=== PATIENT | male | born 1955 | race Caucasian/White ===

== ENCOUNTER 2020-10-18 07:32 | Day surgery (SDC) | payer OTHER ==
--- NOTE | 2020-10-16 13:38 | RAD REPORT ---
EXAM DESCRIPTION: RAD - Chest Pa And Lat (2 Views) - 10/16/2020 1:31 pm CLINICAL HISTORY: PREOP Chest pain. COMPARISON: Ct Stroke Brain Wo Cont dated 10/16/2020; HEAD BRAIN W O CONTRAST dated 11/24/2012Chest Si ngle View dated 10/01/2017 FINDINGS: The lungs are clear. The heart is normal in size. No displaced fractures. IMPRESSION: No acute or concerning finding suspected.
[2020-10-16 14:06] LABS: Absolute Lymphocytes (CBC) 1.4 K/uL (0.7-4.9); Basophils % 0.6 % (0-1.3); Hematocrit 46.4 % (39.6-49.0); Lymphocytes % 24.4 % (15.3-44.8); MPV 9.5 fL (7.6-11.3); RBC Red Blood Cell Count 4.73 M/uL (4.33-5.43)
[2020-10-16 15:18] LABS: Potassium 3.8 mmol/L (3.5-5.1)
[2020-10-18] MEDS ORDERED: Ringers Lactate 1,000 ML IV ONE (08:29)
[2020-10-18] MEDS ORDERED: CEFOXITIN/SWI 1gm 1 GM/10 ML SYR ONE (08:30)
[2020-10-18] MEDS ORDERED: LIDOCAINE 1% MPF 30 ML VIAL ONE (08:32)
[2020-10-18] MEDS ORDERED: FENTANYL CITR 100 MCG/2 ML ONE ×3 (10:23→11:03)
[2020-10-18] MEDS ORDERED: propofoL 200 MG/20 ML VIAL IV ONE (10:34)
[2020-10-18] MEDS ORDERED: LIDOCAINE 1% MPF 5 ML VIAL ONE (10:35)
[2020-10-18] MEDS ORDERED: ONDANSETRON 4 MG/2 ML VIAL ONE (10:50)
[2020-10-18] MEDS ORDERED: HYDROCODONE/APAP 7.5/325 MG TAB ONE (12:03)
--- NOTE | 2020-10-18 12:15 | OP ---
Date of Procedure: 10/18/2020 Surgeon: Wilfredo Cabello MD Hr Analyst: None. Preoperative Diagnosis: Thrombosed and bleeding hemorrhoids. Postoperative Diagnosis: Thrombosed and bleeding hemorrhoids. Procedures: Exam under anesthesia, rigid proctoscopy, and hemorrhoidectomy. Estimated Blood Loss: Minimal. Specimen: Right lateral thrombosed hemorrhoid with ulcer. Finding: As above. Anesthesia: General. Complications: None. Disposition: The patient tolerated the procedure in stable condition and taken to Recovery in good g eneral condition. Procedure In Detail: The patient was brought to the OR and placed in supine position. General anest hesia begun. The patient was placed in lithotomy position, prepped and draped in the usual sterile f ashion. Exam under anesthesia revealed a thrombosed ulcerated right lateral hemorrhoid and rigid pro ctoscopy revealed other smaller hemorrhoids below that. There was no thrombosis. They appeared to b e relatively asymptomatic. Subsequently, Harmonic Scalpel was used to excise the thrombosed hemorrho id with the ulceration and then there were sent to pathology for identification after being appropria tely labeled and bleeding was controlled with cautery. Blood clots were all removed and then Surgice l, Vaseline and foam were placed in the anal canal for bleeding control. Sterile dressing was applie d. Marcaine had already been injected. The patient was awakened and taken to Recovery in good gener al condition. Discharge Note: The patient will go to Day Surgery and home when stable. Disposition: Home. Condition: Stable. Discharge Instructions: Resume home medications and diet. Activity as tolerated. No heavy lifting. High-fiber diet. Metamucil 1 tablespoon p.o. t.i.d., Colace 100 mg p.o. b.i.d., Procto-HC 2.5% to anus b.i.d. and p.r.n. Sitz baths q.i.d. Tylenol No.3 one tablet p.o. q.4 p.r.n. pain. Follow up i n my office in 2 weeks. Call for appointment. /MODL Voice ID: [id number] Report ID: [id number]
[2020-10-18 12:50] VITALS: BP 129/65; TEMP 96.4; O2SAT 98
== END 2020-10-18 12:40 | disposition home or self-care (01) ==
LOC: OR 07:32
PROVIDERS: ATTEND Surgery
PROC: 0DJD8ZZ Inspection of Lower Intestinal Tract, Via Natural or Artificial Opening Endoscopic (ICD-10-PCS; 2020-10-18)
PROC: 06BY4ZC Excision of Hemorrhoidal Plexus, Percutaneous Endoscopic Approach (ICD-10-PCS; principal; 2020-10-18 09:15)
DX: K64.5 Perianal venous thrombosis (principal); G47.30 Sleep apnea, unspecified; Z20.822 Contact with and (suspected) exposure to COVID-19
CPT/HCPCS: 85025; 80048; 36415; 88304; 71046; 46320; 45300; U0003; J2704; J3010 ×3; J7120; J2405

== ENCOUNTER 2021-11-23 05:14 | Emergency (ER) | payer OTHER ==
[2021-11-23 05:43] LABS: Absolute Lymphocytes (CBC) 1.6 K/uL (0.7-4.9)
[2021-11-23 05:48] LABS: Hematocrit 47.1 % (39.6-49.0); Lymphocytes % 21.8 % (15.3-44.8); MPV 8.4 fL (7.6-11.3)
[2021-11-23] MEDS ORDERED: MORPHINE 4 MG/ML SYR ONE (05:58)
[2021-11-23 05:59] LABS: Albumin 4.1 g/dL (3.4-5.0); Bilirubin Total 1.8 mg/dL (0.2-1.0); Potassium 4.2 mmol/L (3.5-5.1); Protein, Total 7.9 g/dL (6.4-8.2)
[2021-11-23] MEDS ORDERED: ONDANSETRON 4 MG/2 ML VIAL ONE (05:59)
--- NOTE | 2021-11-23 07:57 | RAD REPORT ---
EXAM DESCRIPTION: CTAbdomen Pelvis W Contrast - 11/23/2021 7:28 am CLINICAL HISTORY: Abdominal pain. Abdominal pain, acute, nonlocalized COMPARISON: No comparisons TECHNIQUE: Biphasic CT imaging of the abdomen and pelvis was performed with 100 ml non-ionic IV cont rast. All CT scans are performed using dose optimization technique as appropriate and may include automated exposure control or mA/KV adjustment according to patient size. FINDINGS: Mild linear opacities in both posterior lung bases likely subsegmental atelectasis. Small hiatal hernia. The liver, spleen, pancreas, adrenal glands and kidneys are within normal limits. Cholecystectomy cli ps. No bowel obstruction, free air, free fluid or abscess. The appendix is normal. No evidence of signi ficant lymphadenopathy. Small bilateral fat containing inguinal hernias. Mild lumbar degenerative changes. IMPRESSION: No acute intra-abdominal or pelvic finding.
--- NOTE | 2021-11-23 08:16 | EDPHYS ---
Physician Documentation [facility] Name: Fredy Dickson Age: 66 yrs Sex: Male : 1955 Arrival Date: 11/23/2021 Time: 05:18 Bed 7 Private MD: ED Physician Jhonny Asencio HPI: 11/23 05:52 This 66 yrs old Male presents to ER via Ambulatory with complaints of Abdominal Pain. kdr 05:52 The patient presents with abdominal pain in the epigastric area, in the upper abdomen. kdr Onset: The symptoms/episode began/occurred gradually, last night, at 21:00. The symptoms do not radiate. Associated signs and symptoms: Pertinent positives: nausea, Pertinent negatives: anorexia, blood in stools, chest pain, constipation, diarrhea, dysuria, fever, headache, hematuria, palpitations, shortness of breath, testicular pain, vomiting, vomiting blood. The symptoms are described as achy, crampy, intermittent, sharp, vague. Modifying factors: The symptoms are alleviated by nothing, the symptoms are aggravated by coughing, movement, touching the area. Severity of pain: At its worst the pain was mild moderate just prior to arrival, in the emergency department the pain is unchanged. The patient has experienced similar episodes in the past, a few times. The patient has not recently seen a physician. Historical: - Allergies: 06:03 NSAIDS; kd3 - Home Meds: 06:03 aspirin 81 mg Oral TbEC 1 tab once daily [Active]; folic acid 1 mg Oral tab twice a day kd3 [Active]; omeprazole 40 mg Oral cpDR 1 cap once daily [Active]; Vascepa 1 gram Oral cap twice a day [Active]; - PMHx: 06:03 GERD; kd3 - Immunization history:: Adult Immunizations up to date. - Social history:: Smoking status: unknown. ROS: 05:52 Constitutional: Negative for fever, chills, and weight loss, Eyes: Negative for injury, kdr pain, redness, and discharge, Neck: Negative for injury, pain, and swelling, Cardiovascular: Negative for chest pain, palpitations, and edema, Respiratory: Negative for shortness of breath, cough, wheezing, and pleuritic chest pain, Back: Negative for injury and pain, : Negative for injury, bleeding, discharge, and swelling, MS/Extremity: Negative for injury and deformity, Skin: Negative for injury, rash, and discoloration, Neuro: Negative for headache, weakness, numbness, tingling, and seizure activity. Psych: Negative for depression, anxiety, suicide ideation, homicidal ideation, and hallucinations, Allergy/Immunology: Negative for hives, rash, and allergies, Endocrine: Negative for neck swelling, polydipsia, polyuria, polyphagia, and marked weight changes, Hematologic/Lymphatic: Negative for swollen nodes, abnormal bleeding, and unusual bruising. 05:52 Abdomen/GI: Positive for abdominal pain, nausea, Negative for Exam: 06:18 Constitutional: This is a well developed, well nourished patient who is awake, alert, kdr and in no acute distress. Head/Face: Normocephalic, atraumatic. Eyes: Pupils equal round and reactive to light, extra-ocular motions intact. Lids and lashes normal. Conjunctiva and sclera are non-icteric and not injected. Cornea within normal limits. Periorbital areas with no swelling, redness, or edema. Neck: Trachea midline, no thyromegaly or masses palpated, and no cervical lymphadenopathy. Supple, full range of motion without nuchal rigidity, or vertebral point tenderness. No Meningismus. Chest/axilla: Normal chest wall appearance and motion. Nontender with no deformity. No lesions are appreciated. Cardiovascular: Regular rate and rhythm with a normal S1 and S2. No gallops, murmurs, or rubs. Normal PMI, no JVD. No pulse deficits. Respiratory: Lungs have equal breath sounds bilaterally, clear to auscultation and percussion. No rales, rhonchi or wheezes noted. No increased work of breathing, no retractions or nasal flaring. Back: No spinal tenderness. No costovertebral tenderness. Full range of motion. Skin: Warm, dry with normal turgor. Normal color with no rashes, no lesions, and no evidence of cellulitis. MS/ Extremity: Pulses equal, no cyanosis. Neurovascular intact. Full, normal range of motion. Neuro: Awake and alert, GCS 15, oriented to person, place, time, and situation. Cranial nerves II-XII grossly intact. Motor strength 5/5 in all extremities. Sensory grossly intact. Cerebellar exam normal. Normal gait. Psych: Awake, alert, with orientation to person, place and time. Behavior, mood, and affect are within normal limits. 06:18 Abdomen/GI: Inspection: obese Bowel sounds: active, all quadrants, Palpation: soft, mild abdominal tenderness, in the epigastric area, right upper quadrant and left upper quadrant. Vital Signs: 05:26 BP 177 / 86; Pulse 77; Resp 18; Temp 97.2; Pulse Ox 100% ; Weight 107.5 kg; Height 5 tw5 ft. 11 in. (180.34 cm); Pain 4/10; 06:03 BP 156 / 85; Pulse 72; Resp 16; Pulse Ox 98% on R/A; kd3 07:01 BP 133 / 85; Pulse 74; Resp 16; Pulse Ox 99% on R/A; kd3 05:26 Body Mass Index 33.05 (107.50 kg, 180.34 cm) tw5 MDM: 06:18 Data reviewed: vital signs, nurses notes. Counseling: I had a detailed discussion with kdr the patient and/or guardian regarding: the historical points, exam findings, and any diagnostic results supporting the discharge/admit diagnosis, lab results, radiology results. 07:10 Patient medically screened. ma2 08:14 Differential diagnosis: bowel obstruction, gastritis, Irritable bowel syndrome, ma2 pancreatitis. Response to treatment: the patient's symptoms have resolved after treatment. 11/23 05:20 Order name: CBC with Diff; Complete Time: 07:10 [facility] 11/23 05:20 Order name: CMP; Complete Time: 07:10 [facility] 11/23 05:20 Order name: Lipase; Complete Time: 07:10 [facility] 11/23 07:03 Order name: CT Abd/Pelvis - IV Contrast Only; Complete Time: 08:09 [facility] 11/23 05:20 Order name: IV Saline Lock; Complete Time: 06:00 [facility] 11/23 05:20 Order name: Labs collected and sent; Complete Time: 06:00 [facility] Administered Medications: 06:00 Drug: morphine 4 mg Route: IVP; Site: right antecubital; kd3 07:00 Follow up: Response: No adverse reaction; Marked relief of symptoms; Pain is decreased; jg9 RASS: Alert and Calm (0) 06:01 Drug: Zofran (Ondansetron) 4 mg Route: IVP; Site: right antecubital; kd3 07:00 Follow up: Response: No adverse reaction; Nausea is decreased jg9 Disposition Summary: 11/23/21 08:15 Discharge Ordered Location: Home ma2 Condition: Stable ma2 Diagnosis - Abdominal pain, Generalized ma2 Followup: ma2 - With: Bob Stewart MD - When: Tomorrow - Reason: If symptoms return Discharge Instructions: - Discharge Summary Sheet ma2 - Abdominal Pain, Adult ma2 Forms: - Medication Reconciliation Form ma2 - Thank You Letter ma2 - Antibiotic Education ma2 - Prescription Opioid Use ma2 Prescriptions: - Zofran 4 mg Oral Tablet - take 1 tablet by ORAL route every 12 hours As needed; 20 tablet; Refills: 0, ma2 Product Selection Permitted - Diclofenac Sodium 75 mg Oral Tablet Sustained Release - take 1 tablet by ORAL route 2 times per day; 30 tablet; Refills: 0, Product ma2 Selection Permitted - Pepcid 20 mg Oral Tablet - take 1 tablet by ORAL route once daily for 10 days; 10 tablet; Refills: 0, ma2 Product Selection Permitted Signatures: Dispatcher [employer] Michael Hoover MD MD [facility] Jhonny Asencio MD MD ma2 Anni San RN RN kd3 Roberta Lenz RN jg9
--- NOTE | 2021-11-23 08:16 | ER ---
Nurse's Notes [facility] Name: Fredy Dickson Age: 66 yrs Sex: Male : 1955 Arrival Date: 11/23/2021 Time: 05:18 Bed 7 Private MD: Diagnosis: Abdominal pain, Generalized Presentation: 11/23 05:26 Chief complaint: Patient states: "I am having abdominal pain that started two days ago tw5 after dinner.". Coronavirus screen: Vaccine status: Patient reports receiving the 2nd dose of the covid vaccine. Moderna. Ebola Screen: Patient negative for fever greater than or equal to 101.5 degrees Fahrenheit, and additional compatible Ebola Virus Disease symptoms Patient denies exposure to infectious person. Patient denies travel to an Ebola-affected area in the 21 days before illness onset. Initial Sepsis Screen: Does the patient meet any 2 criteria? No. Patient's initial sepsis screen is negative. Does the patient have a suspected source of infection? Yes: Acute abdominal pain. Risk Assessment: Do you want to hurt yourself or someone else? Patient reports no desire to harm self or others. Onset of symptoms was November 21, 2021. 05:26 Method Of Arrival: Ambulatory tw5 05:26 Acuity: ALEISHA 3 tw5 Triage Assessment: 05:29 General: Appears in no apparent distress. Behavior is calm, cooperative, appropriate tw5 for age. Pain: Complains of pain in right upper quadrant and left upper quadrant Pain currently is 4 out of 10 on a pain scale. at worst was 8 out of 10 on a pain scale. Quality of pain is described as pressure, squeezing. GI: Reports lower abdominal pain. Historical: - Allergies: 06:03 NSAIDS; kd3 - Home Meds: 06:03 aspirin 81 mg Oral TbEC 1 tab once daily [Active]; folic acid 1 mg Oral tab twice a day kd3 [Active]; omeprazole 40 mg Oral cpDR 1 cap once daily [Active]; Vascepa 1 gram Oral cap twice a day [Active]; - PMHx: 06:03 GERD; kd3 - Immunization history:: Adult Immunizations up to date. - Social history:: Smoking status: unknown. Screenin:03 Abuse screen: Denies threats or abuse. Denies injuries from another. Nutritional kd3 screening: No deficits noted. Tuberculosis screening: No symptoms or risk factors identified. Fall Risk IV access (20 points). Assessment: 06:01 General: Appears uncomfortable, Behavior is calm, cooperative, appropriate for age. kd3 Pain: Complains of pain in abdomen and left upper quadrant. Neuro: Level of Consciousness is awake, alert, obeys commands, Oriented to person, place, time, situation. Cardiovascular: Patient's skin is warm and dry. Respiratory: Airway is patent Trachea midline Respiratory effort is even, unlabored, Respiratory pattern is regular, symmetrical. GI: Bowel sounds present X 4 quads. Abd is soft X 4 quads. : No signs and/or symptoms were reported regarding the genitourinary system. EENT: No signs and/or symptoms were reported regarding the EENT system. 06:58 Reassessment: Patient and/or family updated on plan of care and expected duration. Pain kd3 level reassessed. Patient is alert, oriented x 3, equal unlabored respirations, skin warm/dry/pink. Patient denies pain at this time. Patient states feeling better. 07:30 Reassessment: Patient and/or family updated on plan of care and expected duration. Pain jg9 level reassessed. Patient is alert, oriented x 3, equal unlabored respirations, skin warm/dry/pink. Patient denies pain at this time. Patient states feeling better. Vital Signs: 05:26 BP 177 / 86; Pulse 77; Resp 18; Temp 97.2; Pulse Ox 100% ; Weight 107.5 kg; Height 5 tw5 ft. 11 in. (180.34 cm); Pain 4/10; 06:03 BP 156 / 85; Pulse 72; Resp 16; Pulse Ox 98% on R/A; kd3 07:01 BP 133 / 85; Pulse 74; Resp 16; Pulse Ox 99% on R/A; kd3 05:26 Body Mass Index 33.05 (107.50 kg, 180.34 cm) tw5 ED Course: 05:18 Patient arrived in ED. kz 05:19 Michael Garcia MD is Attending Physician. kdr 05:27 Triage completed. tw5 05:29 Arm band placed on right wrist. tw5 05:53 Anni San, ROSA is Primary Nurse. kd3 06:01 Inserted saline lock: 20 gauge in right antecubital area, using aseptic technique. kd3 Blood collected. 06:04 Patient has correct armband on for positive identification. kd3 07:09 Attending Physician role handed off by Michael Garcia MD ma2 07:09 Jhonny Asencio MD is Attending Physician. ma2 07:30 CT Abd/Pelvis - IV Contrast Only In Process Unspecified. EDMS 08:15 Bob Stewart MD is Referral Physician. ma2 08:20 No provider procedures requiring assistance completed. jg9 08:20 IV discontinued. jg9 Administered Medications: 06:00 Drug: morphine 4 mg Route: IVP; Site: right antecubital; kd3 07:00 Follow up: Response: No adverse reaction; Marked relief of symptoms; Pain is decreased; jg9 RASS: Alert and Calm (0) 06:01 Drug: Zofran (Ondansetron) 4 mg Route: IVP; Site: right antecubital; kd3 07:00 Follow up: Response: No adverse reaction; Nausea is decreased jg9 Outcome: 08:15 Discharge ordered by . ma2 08:20 Condition: improved jg9 08:28 Discharged to home ambulatory. ww 08:28 Discharge instructions given to patient, Instructed on discharge instructions, follow up and referral plans. medication usage, safety practices, Demonstrated understanding of instructions, follow-up care, medications, Prescriptions given X 3. 08:29 Patient left the ED. ww Signatures: Dispatcher [employer] EDGA Michael Garcia MD MD [facility] Jhonny Asencio MD MD ma2 Wood, Tiffany tw5 Anni San RN RN kd3 Roberta Lenz RN RN jgArabella Ross RN RN ww Zapata, Kelly kz
[2021-11-23 09:06] VITALS: BP 156/85; O2SAT 98
== END 2021-11-23 08:29 | disposition home or self-care (01) ==
LOC: ER 05:14
DX: R10.84 Generalized abdominal pain (principal); K21.9 Gastro-esophageal reflux disease without esophagitis; Z88.6 Allergy status to analgesic agent; Z79.82 Long term (current) use of aspirin
CPT/HCPCS: 85025; 36415; 83690; 80053; 74177; 96375; 96374; 99284; Q9967; J2405

== ENCOUNTER 2021-11-25 13:32 | Inpatient (IN) | payer OTHER ==
[2021-11-25] MEDS ORDERED: ONDANSETRON 4 MG/2 ML VIAL ONE ×3 (14:03→21:01)
[2021-11-25] MEDS ORDERED: MORPHINE 4 MG/ML SYR ONE (14:03)
[2021-11-25] MEDS ORDERED: NA CHLORIDE 0.9% 1,000 ML ONE ×2 (14:04→14:48)
[2021-11-25 14:16] LABS: Absolute Lymphocytes (CBC) 1.6 K/uL (0.7-4.9); Lymphocytes % 20.5 % (15.3-44.8); MPV 8.7 fL (7.6-11.3); RBC Red Blood Cell Count 4.97 M/uL (4.33-5.43)
[2021-11-25 14:20] LABS: Protime INR 1.12
[2021-11-25 14:39] LABS: Alkaline Phosphatase 275 U/L (45-117); BUN Blood Urea Nitrogen 12 mg/dL (7-18); Bicarbonate 23 mmol/L (21-32); Bilirubin Direct 5.7 mg/dL (0-0.2); Glucose Level 116 mg/dL (74-106); Magnesium 2.5 mg/dL (1.8-2.4); NT PRO-BNP 44 pg/mL (<125); Potassium 3.7 mmol/L (3.5-5.1); Protein, Total 7.8 g/dL (6.4-8.2); Sodium Level 137 mmol/L (136-145); Troponin High Sensitivity 3.5 pg/mL (<58.9)
[2021-11-25 14:42] LABS: ALT/SGPT 1152 U/L (12-78); AST/SGOT 407 U/L (15-37); Bilirubin Total 8.6 mg/dL (0.2-1.0); Lipase > 30000 U/L (73-393)
--- NOTE | 2021-11-25 14:49 | RAD REPORT ---
EXAM DESCRIPTION: RAD - Chest Single View - 11/25/2021 2:41 pm CLINICAL HISTORY: upper abdomen pain COMPARISON: Chest Pa And Lat (2 Views) dated 10/16/2020; Chest Single View dated 10/01/2017 FINDINGS: Lines: None. Lungs: No evidence of edema or pneumonia. Pleural: No significant pleural effusions or pneumothorax. Cardiac: The heart size is within normal limits. Bones: No acute fractures. Other: IMPRESSION: No acute cardiopulmonary disease.
[2021-11-25] MEDS ORDERED: HYDROMORPHONE HCL 1 MG/ML INJ ONE ×2 (14:58→17:23)
--- NOTE | 2021-11-25 15:22 | RAD REPORT ---
EXAM DESCRIPTION: CTAbdomen Pelvis W Contrast - 11/25/2021 3:04 pm CLINICAL HISTORY: Abdominal pain, acute, nonlocalized COMPARISON: Abdomen Pelvis W Contrast dated 11/23/2021 TECHNIQUE: CT of the abdomen and pelvis was performed. All CT scans are performed using dose optimization technique as appropriate and may include automated exposure control or mA/KV adjustment according to patient size. FINDINGS: Lower chest: Small hiatal hernia Liver: Hepatic steatosis Biliary: Cholecystectomy the extrahepatic common bile duct measures 9 millimeters. Stomach: No significant focal abnormality. Duodenum: No significant focal abnormality. Pancreas: Diffuse peripancreatic edema. The pancreas enhances homogeneously. Spleen: No significant abnormality. Adrenal: No suspicious lesions. Kidney/ureter: No hydronephrosis. No renal calculi. Too small to characterize and/or benign appearing renal lesions are noted. Retroperitoneum: Fluid extends in the retroperitoneum but no discrete or loculated fluid collections. Vascular: No aneurysm. Bowel: No significant focal abnormality. Peritoneum: No ascites or free air. Small fat containing inguinal hernias. Bladder: Grossly unremarkable. Reproductive: Mild prostatomegaly. Bones: No acute fracture. Other: n/a IMPRESSION: Acute pancreatitis without complicating features identified. Extrahepatic biliary ductal dilatation is nonspecific but may be related to the postcholecystectomy state. MRCP could better [place].
--- NOTE | 2021-11-25 15:57 | RAD REPORT ---
EXAM DESCRIPTION: US - Abdomen Exam Limited - 11/25/2021 3:48 pm CLINICAL HISTORY: ABD PAIN COMPARISON: Abdomen Pelvis W Contrast dated 11/25/2021 FINDINGS: Cholecystectomy. Biliary ductal dilatation is noted. The common bile duct measures 9 isai meters. IMPRESSION: Cholecystectomy with biliary ductal dilatation is nonspecific and could reflect the post cholecystectomy state. MRCP could exclude choledocholithiasis or other etiology for biliary obstructi on.
--- NOTE | 2021-11-25 16:21 | EDPHYS ---
Physician Documentation [facility] Name: Fredy Dickson Age: 66 yrs Sex: Male : 1955 Arrival Date: 11/25/2021 Time: 13:33 Bed 24 Private MD: Jose Guerin T ED Physician Brien Mccain HPI: 11/25 14:00 This 66 yrs old Male presents to ER via Ambulatory with complaints of Abdominal Pain. cp 14:00 The patient presents with abdominal pain in the upper abdomen. cp 14:00 Onset: The symptoms/episode began/occurred 2 day(s) ago, and became worse today. The cp symptoms do not radiate. Associated signs and symptoms: Pertinent positives: anorexia, nausea, Pertinent negatives: constipation, diarrhea, dysuria, fever, vomiting, vomiting blood. The symptoms are described as constant. 14:00 Severity of pain: in the emergency department the pain is actually worse markedly. cp Patient reports daily drinking of alcohol. Historical: - Allergies: 13:41 NSAIDS; aa5 - Home Meds: 13:41 Vascepa 1 gram Oral cap twice a day [Active]; omeprazole 40 mg Oral cpDR 1 cap once aa5 daily [Active]; folic acid 1 mg Oral tab twice a day [Active]; aspirin 81 mg Oral TbEC 1 tab once daily [Active]; - PMHx: 13:41 GERD; aa5 - PSHx: 13:41 Cholecystectomy; aa5 - Immunization history:: Adult Immunizations unknown. - Social history:: Smoking status: Patient denies any tobacco usage or history of. ROS: 14:05 Constitutional: Negative for body aches, chills, fever. cp 14:05 Cardiovascular: Negative for chest pain, edema, palpitations. cp 14:05 Respiratory: Negative for cough, shortness of breath, wheezing. 14:05 Abdomen/GI: Positive for abdominal pain, nausea, Negative for vomiting, diarrhea, constipation, hematemesis. 14:05 Back: Negative for radiated pain. cp 14:05 Eyes: Negative for injury, pain, redness, and discharge. cp 14:05 ENT: Negative for drainage from ear(s), ear pain, sore throat, difficulty swallowing, difficulty handling secretions. 14:05 : Negative for urinary symptoms. 14:05 Neuro: Negative for altered mental status, dizziness, headache, syncope, weakness. 14:05 All other systems are negative. Exam: 14:05 ECG was reviewed by the Attending Physician. cp 14:10 Constitutional: The patient appears in no acute distress, alert, awake, non-toxic, well cp developed, well nourished, diaphoretic, in obvious pain, uncomfortable. 14:10 Head/Face: Normocephalic, atraumatic. cp 14:10 Eyes: Periorbital structures: appear normal, Conjunctiva: normal, no exudate, no injection, Sclera: no appreciated abnormality, Lids and lashes: appear normal, bilaterally. 14:10 ENT: External ear(s): are unremarkable, Nose: is normal, Mouth: Lips: moist, Oral mucosa: pink and intact, moist, Posterior pharynx: Airway: no evidence of obstruction, patent. 14:10 Chest/axilla: Inspection: normal, Palpation: is normal, no crepitus, no tenderness. 14:10 Cardiovascular: Rate: normal, Rhythm: regular, Edema: is not appreciated, JVD: is not appreciated. 14:10 Respiratory: the patient does not display signs of respiratory distress, Respirations: normal, no use of accessory muscles, no retractions, labored breathing, is not present, Breath sounds: are clear throughout, no decreased breath sounds, no stridor, no wheezing. 14:10 Abdomen/GI: Inspection: abdomen appears normal, Bowel sounds: active, all quadrants, Palpation: soft, in all quadrants, severe abdominal tenderness, in the right upper quadrant and left upper quadrant, rebound tenderness, is not appreciated, voluntary guarding, is elicited in the right upper quadrant and left upper quadrant. 14:10 Back: CVA tenderness, is absent. 14:10 Skin: no rash present. 14:10 Neuro: Orientation: to person, place \\T\\ time. Mentation: is normal, Motor: moves all fours, strength is normal, Sensation: is normal. Vital Signs: 13:40 BP 126 / 72; Pulse 73; Resp 18 S; Temp 97.2(TE); Pulse Ox 97% on R/A; Weight 106.59 kg aa5 (R); Height 5 ft. 11 in. (180.34 cm) (R); 14:04 BP 124 / 71; Pulse 66; Resp 15; Pulse Ox 96% on R/A; Pain 9/10; ld1 14:28 BP 124 / 71; Pulse 73; Resp 18; Pulse Ox 100% on R/A; Pain 6/10; ld1 15:17 BP 140 / 78; Pulse 79; Resp 18; Pulse Ox 97% on R/A; ld1 16:04 BP 136 / 80; Pulse 77; Resp 20; Pulse Ox 94% on R/A; ld1 17:01 BP 144 / 75; Pulse 80; Resp 18; Pulse Ox 100% on R/A; ld1 19:25 BP 155 / 90; Pulse 70; Resp 18; Pulse Ox 97% on R/A; ld1 20:37 BP 165 / 97; Pulse 72; Resp 18; Pulse Ox 95% on R/A; ld1 13:40 Body Mass Index 32.78 (106.59 kg, 180.34 cm) aa5 MDM: 13:49 Patient medically screened. cp 15:39 Physician consultation: Kwame Godfrey MD was called at 15:40, was contacted at 15:40, cp regarding consult, patient's condition, would like further tests performed, MRCP. 16:20 Data reviewed: vital signs, nurses notes, lab test result(s), EKG, radiologic studies, cp CT scan, plain films. 16:20 Test interpretation: by ED physician or midlevel provider: ECG, plain radiologic cp studies. Counseling: I had a detailed discussion with the patient and/or guardian regarding: the historical points, exam findings, and any diagnostic results supporting the discharge/admit diagnosis, the presence of at least one elevated blood pressure reading (>120/80) during this emergency department visit, lab results, radiology results, the need for further work-up and treatment in the hospital. Response to treatment: the patient's symptoms have markedly improved after treatment. Physician consultation: Cordelia Griffith MD was called at 16:20, was contacted at 16:20, regarding admission, to the telemetry unit. patient's condition. 11/25 13:54 Order name: Basic Metabolic Panel; Complete Time: 14:43 cp 11/25 15:36 Interpretation: Normal except: CL 108; GLUC 116; GFR 67. cp 11/25 13:54 Order name: CBC with Diff; Complete Time: 14:43 cp 11/25 13:54 Order name: LFT's; Complete Time: 14:43 cp 11/25 13:54 Order name: Magnesium; Complete Time: 14:43 cp 11/25 13:54 Order name: NT PRO-BNP; Complete Time: 14:43 cp 11/25 13:54 Order name: PT-INR; Complete Time: 14:43 cp 11/25 13:54 Order name: Troponin HS; Complete Time: 14:43 cp 11/25 13:54 Order name: Lipase; Complete Time: 14:43 cp 11/25 14:44 Order name: Lactate; Complete Time: 16:16 cp 11/25 14:44 Order name: Procalcitonin; Complete Time: 16:16 cp 11/25 14:44 Order name: Blood Culture Adult (2) cp 11/25 16:48 Order name: COVID-19 SARS RT PCR (Document "Date of Onset" if Symptomatic) ld1 11/25 17:47 Order name: Thyroid Stimulating Hormone EDMS 11/25 17:47 Order name: CBC with Automated Diff EDMS 11/25 13:54 Order name: XRAY Chest (1 view); Complete Time: 14:52 cp 11/25 14:43 Order name: CT Abd/Pelvis - IV Contrast Only; Complete Time: 15:35 cp 11/25 14:49 Order name: US Abdomen Limited: RUQ/epigastric; Complete Time: 16:16 cp 11/25 17:47 Order name: CBC with Automated Diff EDMS 11/25 17:47 Order name: Comprehensive Metabolic Panel EDMS 11/25 17:47 Order name: Comprehensive Metabolic Panel EDMS 11/25 17:47 Order name: Lipase EDMS 11/25 17:47 Order name: Lipase EDMS 11/25 17:47 Order name: Lipase EDMS 11/25 17:47 Order name: Lipase EDMS 11/25 17:47 Order name: Lipid Profile EDMS 11/25 17:47 Order name: Lipid Profile EDMS 11/25 17:47 Order name: Magnesium EDMS 11/25 17:47 Order name: Magnesium EDMS 11/25 17:47 Order name: Magnesium EDMS 11/25 17:47 Order name: Magnesium EDMS 11/25 13:54 Order name: EKG; Complete Time: 13:55 cp 11/25 13:54 Order name: Cardiac monitoring; Complete Time: 13:58 cp 11/25 13:54 Order name: EKG - Nurse/Tech; Complete Time: 13:58 cp 11/25 13:54 Order name: IV Saline Lock; Complete Time: 14:06 cp 11/25 13:54 Order name: Labs collected and sent; Complete Time: 14:06 cp 11/25 13:54 Order name: O2 Per Protocol; Complete Time: 13:58 cp 11/25 13:54 Order name: O2 Sat Monitoring; Complete Time: 13:58 cp 11/25 14:49 Order name: NPO; Complete Time: 14:52 cp 11/25 15:44 Order name: Cholangiogram; Complete Time: 18:37 EDMS 11/25 17:47 Order name: CONS Physician Consult EDMS 11/25 17:47 Order name: NPO EDMS EC:05 Rate is 66 beats/min. Rhythm is regular. OH interval is normal. QRS interval is normal. cp QT interval is normal. T waves are Inverted in lead aVR. Interpreted by me. Reviewed by me. Administered Medications: 14:03 Drug: morphine 4 mg Route: IVP; Site: left antecubital; ld1 14:51 Follow up: Response: No adverse reaction ld1 14:03 Drug: Zofran (Ondansetron) 4 mg Route: IVP; Site: left antecubital; ld1 14:51 Follow up: Response: No adverse reaction ld1 14:03 Drug: NS 0.9% 500 ml Route: IV; Rate: 500 ml/hr; Site: left antecubital; ld1 14:51 Follow up: Response: No adverse reaction; IV Status: Completed infusion; IV Intake: ld1 500ml 14:42 Not Given (Physician Discretion): NS 0.9% 500 ml IV at 125 ml/hr continuous cp 14:50 Drug: NS 0.9% 1000 ml Route: IV; Rate: 1 bolus; Site: left antecubital; ld1 14:57 Drug: Dilaudid (HYDROmorphone) 1 mg Route: IVP; Site: left antecubital; ld1 16:57 Follow up: Response: No adverse reaction ld1 17:20 Drug: Dilaudid (HYDROmorphone) 1 mg Route: IVP; Site: left antecubital; ld1 17:29 Follow up: Response: No adverse reaction ld1 18:15 Drug: Zofran (Ondansetron) 4 mg Route: IVP; Site: left antecubital; ld1 Disposition: 11/26 07:07 Co-signature as Attending Physician, Brien Mccain MD. rn Disposition Summary: 11/25/21 16:20 Hospitalization Ordered Hospitalization Status: Inpatient Admission cp Provider: Cordelia Griffith cp Location: Telemetry/MedSurg (Inpatient) cp Condition: Stable cp Problem: new cp Symptoms: have improved cp Bed/Room Type: Standard cp Room Assignment: 230(11/25/21 21:19) [id number] Diagnosis - Alcohol induced acute pancreatitis without necrosis or infection cp Forms: - Medication Reconciliation Form cp - SBAR form cp Signatures: Dispatcher [employer] EDBrien Hinkle MD MD rn Calderon, Audri, RN RN aa5 Amanuel Leyva PA PA jr8 Michael Rincon, CHECK WEIGHER-C CHECK WEIGHER-Cla1 Josh Watters PA PA cp Mami Nix RN RN ld1 Corrections: (The following items were deleted from the chart) 11/25 21:19 16:20 cp jr8
--- NOTE | 2021-11-25 16:21 | ER ---
Nurse's Notes [facility] Name: Fredy Dickson Age: 66 yrs Sex: Male : 1955 Arrival Date: 11/25/2021 Time: 13:33 Bed 24 Private MD: Jose Guerin T Diagnosis: Alcohol induced acute pancreatitis without necrosis or infection Presentation: 11/25 13:40 Chief complaint: Patient states: generalized abd pain that began Thursday. Pt states "I aa5 was just here and I haven't been able to see my GI doctor". Pt pale and diaphoretic during triage. Onset of symptoms was November 2021. 13:40 Coronavirus screen: At this time, the client does not indicate any symptoms associated aa5 with coronavirus-19. Ebola Screen: No symptoms or risks identified at this time. Initial Sepsis Screen: Does the patient meet any 2 criteria? No. Patient's initial sepsis screen is negative. Does the patient have a suspected source of infection? No. Patient's initial sepsis screen is negative. Risk Assessment: Do you want to hurt yourself or someone else? Patient reports no desire to harm self or others. 13:40 Method Of Arrival: Ambulatory aa5 13:40 Acuity: ALEISHA 2 aa5 Historical: - Allergies: 13:41 NSAIDS; aa5 - Home Meds: 13:41 Vascepa 1 gram Oral cap twice a day [Active]; omeprazole 40 mg Oral cpDR 1 cap once aa5 daily [Active]; folic acid 1 mg Oral tab twice a day [Active]; aspirin 81 mg Oral TbEC 1 tab once daily [Active]; - PMHx: 13:41 GERD; aa5 - PSHx: 13:41 Cholecystectomy; aa5 - Immunization history:: Adult Immunizations unknown. - Social history:: Smoking status: Patient denies any tobacco usage or history of. Screenin:04 Abuse screen: Denies threats or abuse. Denies injuries from another. Nutritional ld1 screening: No deficits noted. Tuberculosis screening: No symptoms or risk factors identified. Fall Risk None identified. Assessment: 14:04 General: Appears in no apparent distress. uncomfortable, Behavior is cooperative, ld1 anxious, fussy. Pain: Complains of pain in abdomen Pain does not radiate. Pain currently is 9 out of 10 on a pain scale. Quality of pain is described as throbbing, Pain began suddenly. Neuro: Level of Consciousness is awake, alert, obeys commands, Oriented to person, place, time, situation. Cardiovascular: Capillary refill < 3 seconds Patient's skin is warm and dry. Rhythm is regular. Respiratory: Airway is patent Respiratory effort is even, unlabored, Respiratory pattern is regular, symmetrical. GI: Abdomen is round non-distended, Bowel sounds present X 4 quads. Abd is soft Abdomen is tender to palpation X 4 quads. Reports lower abdominal pain, upper abdominal pain, bloating, nausea. : No signs and/or symptoms were reported regarding the genitourinary system. EENT: No signs and/or symptoms were reported regarding the EENT system. Derm: No signs and/or symptoms reported regarding the dermatologic system. Musculoskeletal: No signs and/or symptoms reported regarding the musculoskeletal system. 14:28 Reassessment: Patient appears in no apparent distress at this time. Patient and/or ld1 family updated on plan of care and expected duration. Pain level reassessed. Pt reports feeling a "little bit bettter." Patient states symptoms have improved. 17:01 Reassessment: No changes from previously documented assessment. ld1 19:28 Reassessment: Resting in bed. RR 19. ld1 21:28 Reassessment: Attempted to call report. Was told nurse was not ready. Will call back. ld1 Vital Signs: 13:40 BP 126 / 72; Pulse 73; Resp 18 S; Temp 97.2(TE); Pulse Ox 97% on R/A; Weight 106.59 kg aa5 (R); Height 5 ft. 11 in. (180.34 cm) (R); 14:04 BP 124 / 71; Pulse 66; Resp 15; Pulse Ox 96% on R/A; Pain 9/10; ld1 14:28 BP 124 / 71; Pulse 73; Resp 18; Pulse Ox 100% on R/A; Pain 6/10; ld1 15:17 BP 140 / 78; Pulse 79; Resp 18; Pulse Ox 97% on R/A; ld1 16:04 BP 136 / 80; Pulse 77; Resp 20; Pulse Ox 94% on R/A; ld1 17:01 BP 144 / 75; Pulse 80; Resp 18; Pulse Ox 100% on R/A; ld1 19:25 BP 155 / 90; Pulse 70; Resp 18; Pulse Ox 97% on R/A; ld1 20:37 BP 165 / 97; Pulse 72; Resp 18; Pulse Ox 95% on R/A; ld1 13:40 Body Mass Index 32.78 (106.59 kg, 180.34 cm) aa5 ED Course: 13:33 Patient arrived in ED. am2 13:33 Theron Obrien MD is Private Physician. am2 13:33 Jose Guerin MD is Private Physician. am2 13:40 Arm band placed on. aa5 13:41 Triage completed. aa5 13:44 Josh Watters PA is PHCP. cp 13:44 Brien Mccain MD is Attending Physician. cp 13:58 Mami Nix, ROSA is Primary Nurse. ld1 14:04 Patient has correct armband on for positive identification. Placed in gown. Bed in low ld1 position. Call light in reach. Side rails up X2. grinder set up operator jig on. Pulse ox on. NIBP on. Door closed. Noise minimized. Warm blanket given. 14:04 Inserted saline lock: 20 gauge in left antecubital area, using aseptic technique. Blood zm collected. 14:04 No provider procedures requiring assistance completed. ld1 14:43 XRAY Chest (1 view) In Process Unspecified. EDMS 15:06 CT Abd/Pelvis - IV Contrast Only In Process Unspecified. EDMS 15:50 US Abdomen Limited: RUQ/epigastric In Process Unspecified. EDMS 16:18 Cordelia Griffith MD is Hospitalizing Provider. cp 16:57 COVID-19 SARS RT PCR (Document "Date of Onset" if Symptomatic) Sent. ld1 17:30 COVID-19 SARS RT PCR (Document "Date of Onset" if Symptomatic) Sent. ld1 17:33 Cholangiogram In Process Unspecified. EDMS 22:24 Patient admitted, IV remains in place. ld1 Administered Medications: 14:03 Drug: morphine 4 mg Route: IVP; Site: left antecubital; ld1 14:51 Follow up: Response: No adverse reaction ld1 14:03 Drug: Zofran (Ondansetron) 4 mg Route: IVP; Site: left antecubital; ld1 14:51 Follow up: Response: No adverse reaction ld1 14:03 Drug: NS 0.9% 500 ml Route: IV; Rate: 500 ml/hr; Site: left antecubital; ld1 14:51 Follow up: Response: No adverse reaction; IV Status: Completed infusion; IV Intake: ld1 500ml 14:42 Not Given (Physician Discretion): NS 0.9% 500 ml IV at 125 ml/hr continuous cp 14:50 Drug: NS 0.9% 1000 ml Route: IV; Rate: 1 bolus; Site: left antecubital; ld1 14:57 Drug: Dilaudid (HYDROmorphone) 1 mg Route: IVP; Site: left antecubital; ld1 16:57 Follow up: Response: No adverse reaction ld1 17:20 Drug: Dilaudid (HYDROmorphone) 1 mg Route: IVP; Site: left antecubital; ld1 17:29 Follow up: Response: No adverse reaction ld1 18:15 Drug: Zofran (Ondansetron) 4 mg Route: IVP; Site: left antecubital; ld1 Intake: 14:51 IV: 500ml; Total: 500ml. ld1 Outcome: 16:20 Decision to Hospitalize by Provider. cp 22:24 Admitted to Med/surg accompanied by tech, via wheelchair, room 223, with chart, Report ld1 called to ROSA Pereira 22:24 Condition: stable 22:24 Instructed on the need for admit. 22:24 Patient left the ED. ld1 Signatures: Dispatcher [employer] EDMS Hanna Menchaca RN RN aa5 Josh Watters PA PA Caity Barrios Lauren, RN RN ld1 Carmelina Mckinnon Corrections: (The following items were deleted from the chart) 13:42 13:40 BP 126 / 72; Pulse 73bpm; Resp 18bpm; Spontaneous; Pulse Ox 97% RA; Temp 97.2F aa5 Temporal; aa5 13:48 13:40 Chief complaint: Patient states: generalized abd pain that began Thursday. Pt aa5 states "I was just here and I haven't been able to see my GI doctor" aa5 13:48 13:40 Acuity: ALEISHA 3 aa5 aa5
[2021-11-25] MEDS ORDERED: ALBUTEROL 2.5 MG/3 ML NEB SOL NEB PRN (17:41)
--- NOTE | 2021-11-25 17:41 | P.HP ---
Certification for Inpatient With expected LOS: >2 Midnights Patient will require the following post-hospital care: None Practitioner: I am a practitioner with admitting privileges, knowledge of patient current condition, hospital course, and medical plan of care. Services: Services provided to patient in accordance with Admission requirements found in Title 42 Section 412.3 of the Code of Federal Regulations Patient History Date of Service: 11/25/21 Reason for admission: Abdominal pain History of Present Illness: 66-year-old male with past medical history of HLD, GERD status postcholecystectomy presented because of 4-day history of recurrent abdominal pain. Pain is mainly liquid seen in the epigastric to right upper quadrant, colicky in pattern, waxes and wanes. Patient said pain typically lasts for a few minutes and then resolved but frequency has been worsening since the last 2 days. He admits to nausea but denies any vomiting. He rates pain as a peak at about 10 out of 10. He presents to the hospital because of worsening symptoms today. He he denies any similar pain in the past. On presentation he had CT of the abdomen and pelvis done with findings of acute pancreatitis as well as mild CBD dilatation at 9 mm likely reflective of postcholecystectomy state. Right upper quadrant abdominal ultrasound shows similar findings. Patient admitted to daily alcohol intake. He states he drinks bourbon every night but he is a bit reluctant to describe the volume that he drinks. He has been admitted for presumed alcoholic induced pancreatitis. Allergies NSAIDS Allergy (Uncoded 10/18/20 08:49) acid reflux Home Medications: Aspirin [Aspirin EC] 81 mg PO DAILY 12/13/14 Folic Acid 1 mg PO DAILY 12/13/14 Multivitamin [Multivitamins] 1 each PO DAILY 12/13/14 [place]-3 Fatty Acids/Fish Oil [Fish Oil 1,000 mg Softgel] 1,000 mg PO BID 12/13/14 Cholecalciferol (Vitamin D3) [Vitamin D3] 2,000 unit PO DAILY 10/16/20 Famotidine [Pepcid] 20 mg PO DAILY 10/16/20 Melatonin 3 mg PO BEDTIME 10/16/20 - Past Medical/Surgical History Has patient received pneumonia vaccine in the past: No Diabetic: No -: GERD -: Hyperlipidemia -: History of cholecystectomy - Family History Family History: Reviewed- Non-Contributory - Social History Smoking Status: Former smoker Smoking therapy provided: No Patient receptive to therapy: No Alcohol use: Yes CD- Drugs: No Caffeine use: No Place of Residence: Home Review of Systems 10-point ROS is otherwise unremarkable Physical Examination - Physical Exam General: Alert, In no apparent distress, Oriented x3, Obese HEENT: Atraumatic, Normocephalic, PERRLA Neck: Supple, 2+ carotid pulse no bruit, JVD not distended, Other Respiratory: Normal air movement Cardiovascular: No edema, Normal pulses, Regular rate/rhythm, Normal S1 S2 Capillary refill: <2 Seconds Gastrointestinal: Normal bowel sounds, Soft and benign, W/out hepatomegaly, W/out splenomegaly, No ascites, Tenderness (Mild epigastric area) Musculoskeletal: No clubbing, No swelling Integumentary: No rashes, No breakdown Neurological: Normal gait, Normal speech, Normal strength at 5/5 x4 extr, Normal tone, Sensation intact, Cranial nerves 3-12 intact - Studies Laboratory Data (last 24 hrs) 11/25/21 14:01: PT 12.3, INR 1.12 11/25/21 14:01: WBC 8.0, Hgb 16.7, Hct 49.0, Plt Count 164 11/25/21 14:01: Sodium 137, Potassium 3.7, BUN 12, Creatinine 1.11, Glucose 116 H, Magnesium 2.5 H, Total Bilirubin 8.6 H*, AST 407 H* D, ALT 1152 H* D, Alkaline Phosphatase 275 H D, Lipase > 44581 H Assessment and Plan - Advance Directives Does patient have a Living Will: Yes Does patient have a Durable POA for Healthcare: Yes - Code Status/Comfort Care Code Status Assessed: Yes Code Status: Full Code Physician Review: Patient Assessed, Agree with Above Assessment and Plan Physician Review Additional Text: CTAbdomen Pelvis W Contrast - 11/25/2021 3:04 pm CLINICAL HISTORY: Abdominal pain, acute, nonlocalized COMPARISON: Abdomen Pelvis W Contrast dated 11/23/2021 TECHNIQUE: CT of the abdomen and pelvis was performed. All CT scans are performed using dose optimization technique as appropriate and may include automated exposure control or mA/KV adjustment according to patient size. FINDINGS: Lower chest: Small hiatal hernia Liver: Hepatic steatosis Biliary: Cholecystectomy the extrahepatic common bile duct measures 9 millimeters. Stomach: No significant focal abnormality. Duodenum: No significant focal abnormality. Pancreas: Diffuse peripancreatic edema. The pancreas enhances homogeneously. Spleen: No significant abnormality. Adrenal: No suspicious lesions. Kidney/ureter: No hydronephrosis. No renal calculi. Too small to characterize and/or benign appearing renal lesions are noted. Retroperitoneum: Fluid extends in the retroperitoneum but no discrete or loculated fluid collections. Vascular: No aneurysm. Bowel: No significant focal abnormality. Peritoneum: No ascites or free air. Small fat containing inguinal hernias. Bladder: Grossly unremarkable. Reproductive: Mild prostatomegaly. Bones: No acute fracture. Other: n/a IMPRESSION: Acute pancreatitis without complicating features identified. Extrahepatic biliary ductal dilatation is nonspecific but may be related to the postcholecystectomy state. MRCP could better evaluate. Impression Acute pancreatitis Chronic alcohol abuse Hyperlipidemiaon Vascepa Plan We will admit patient to inpatient status We will keep n.p.o. Start gentle hydration with D5 LR Adequate pain medication with IV morphine as needed IV Zofran as needed as needed Monitor daily lipase level GI evaluation for mild extrahepatic CBD dilatation although likely due to postcholecystectomy state Follow plan for MRCP per GI Subcutaneous Lovenox for DVT prophylaxis GI prophylaxis with IV Pepcid Advance directivefull code Will initiate IV Ativan as needed for alcohol withdrawal symptoms Possible hospital stay for 2 to 3 days Critical Care: No Time Spent Managing Pts Care (In Minutes): 70
--- NOTE | 2021-11-25 18:11 | RAD REPORT ---
EXAM DESCRIPTION: MRI - Cholangiogram - 11/25/2021 5:59 pm CLINICAL HISTORY: abd pain COMPARISON: No comparisons FINDINGS: Three-dimensional MRCP was performed using maximum intensity projection reconstruction on the same work station. Re- demonstrated peripancreatic fluid tracking into the retroperitoneum. Status post cholecystectomy. The extrahepatic common bile duct is mildly dilated at approximately 9 millimeters. No filling defec ts identified to suggest choledocholithiasis. The pancreas is edematous. No focal liver mass. Small r enal cysts noted. No retroperitoneal lymphadenopathy. The spleen is unremarkable. IMPRESSION: Cholecystectomy with mild biliary ductal dilatation that is presumably related to the po stcholecystectomy state. No evidence of choledocholithiasis or obstructing mass. Peripancreatic and r etroperitoneal fluid consistent with acute pancreatitis.
[2021-11-25] MEDS: ENOXAPARIN 40 MG/0.4 ML SQ SCH (19:00)
[2021-11-25] MEDS ORDERED: LORazepam 2 MG/ML VIAL ONE (21:00)
[2021-11-25] MEDS: FAMOTIDINE 20 MG/2 ML VIAL IV SCH (21:00)
[2021-11-25] MEDS ORDERED: ENOXAPARIN 40 MG/0.4 ML SQ ONE (21:01)
[2021-11-25] MEDS ORDERED: MORPHINE 2 MG/ML SYR ONE (21:01)
[2021-11-25] MEDS ORDERED: FAMOTIDINE 20 MG/2 ML VIAL IV ONE (21:01)
[2021-11-25] MEDS: LORazepam 2 MG/ML VIAL IV PRN (21:09)
[2021-11-25] MEDS: ONDANSETRON 4 MG/2 ML VIAL IV PRN (21:09)
[2021-11-25 21:19] LABS: Magnesium 2.3 mg/dL (1.8-2.4); Thyroid Stimulating Hormone 0.916 uIU/mL (0.360-3.740)
[2021-11-26 00:10] VITALS: BMI 33.1
[2021-11-26] MEDS: HYDRALAZINE HCL 20 MG/ML VIAL IV PRN (01:32)
[2021-11-26] MEDS: D5LR 1,000 ML IV SCH ×2 (03:26→16:16)
[2021-11-26 04:13] LABS: Absolute Lymphocytes (CBC) 0.5 K/uL (0.7-4.9); Hematocrit 50.5 % (39.6-49.0); Lymphocytes % 4.7 % (15.3-44.8); MPV 8.6 fL (7.6-11.3); RBC Red Blood Cell Count 5.11 M/uL (4.33-5.43)
[2021-11-26] MEDS: ONDANSETRON 4 MG/2 ML VIAL IV PRN ×3 (04:13→20:05)
[2021-11-26 04:47] LABS: Blood Morphology Comment NOT SEEN (NOT SEEN); Platelet Estimate ADEQ
[2021-11-26 05:04] LABS: Albumin 3.6 g/dL (3.4-5.0); Potassium 3.8 mmol/L (3.5-5.1); Protein, Total 7.2 g/dL (6.4-8.2)
[2021-11-26] MEDS: ENOXAPARIN 40 MG/0.4 ML SQ SCH (07:56)
[2021-11-26] MEDS: FAMOTIDINE 20 MG/2 ML VIAL IV SCH ×2 (07:56→20:05)
[2021-11-26] MEDS: MORPHINE 2 MG/ML SYR IV PRN ×4 (08:02→20:05)
[2021-11-26] MEDS ORDERED: ENOXAPARIN 40 MG/0.4 ML SQ SCH (09:00)
--- NOTE | 2021-11-26 09:34 | EKG ---
Test Date: 2021-11-25 Test Time: 13:57:56 Grinder Setup Operator: MAURA MEASUREMENT RESULTS: Intervals: Rate: 66 ID: [id number] QRSD: 88 QT: 416 QTc: 436 Douds: P: 65 ID: [id number] QRS: -33 T: 23 INTERPRETIVE STATEMENTS: Normal sinus rhythm Left axis deviation Abnormal ECG Compared to ECG 10/01/2017 22:45:36 Left-axis deviation now present Myocardial infarct finding no longer present Electronically Signed On 11-26-21 09:31:56 CDT by Kilo Colindres
--- NOTE | 2021-11-26 11:10 | P.PN ---
Subjective Date of Service: 11/26/21 Chief Complaint: Abdominal pain Subjective: No new changes (States abdominal pain improving Anxious to start p.o. intake) Physical Examination - Vital Signs Temperature: 97.4 F Blood Pressure: 155/80 Pulse: 90 Respirations: 20 Pulse Ox (%): 92 - Studies Laboratory Data (last 24 hrs) 11/25/21 14:01: PT 12.3, INR 1.12 11/25/21 14:01: WBC 8.0, Hgb 16.7, Hct 49.0, Plt Count 164 11/25/21 14:01: Sodium 137, Potassium 3.7, BUN 12, Creatinine 1.11, Glucose 116 H, Magnesium 2.5 H, Total Bilirubin 8.6 H*, AST 407 H* D, ALT 1152 H* D, Alkaline Phosphatase 275 H D, Lipase > 43104 H Assessment And Plan Physician Review: Patient Assessed, Agree with Above Assessment and Plan Physician Review Additional Text: CTAbdomen Pelvis W Contrast - 11/25/2021 3:04 pm CLINICAL HISTORY: Abdominal pain, acute, nonlocalized COMPARISON: Abdomen Pelvis W Contrast dated 11/23/2021 TECHNIQUE: CT of the abdomen and pelvis was performed. All CT scans are performed using dose optimization technique as appropriate and may include automated exposure control or mA/KV adjustment according to patient size. FINDINGS: Lower chest: Small hiatal hernia Liver: Hepatic steatosis Biliary: Cholecystectomy the extrahepatic common bile duct measures 9 millimeters. Stomach: No significant focal abnormality. Duodenum: No significant focal abnormality. Pancreas: Diffuse peripancreatic edema. The pancreas enhances homogeneously. Spleen: No significant abnormality. Adrenal: No suspicious lesions. Kidney/ureter: No hydronephrosis. No renal calculi. Too small to characterize and/or benign appearing renal lesions are noted. Retroperitoneum: Fluid extends in the retroperitoneum but no discrete or loculated fluid collections. Vascular: No aneurysm. Bowel: No significant focal abnormality. Peritoneum: No ascites or free air. Small fat containing inguinal hernias. Bladder: Grossly unremarkable. Reproductive: Mild prostatomegaly. Bones: No acute fracture. Other: n/a IMPRESSION: Acute pancreatitis without complicating features identified. Extrahepatic biliary ductal dilatation is nonspecific but may be related to the postcholecystectomy state. MRCP could better evaluate. MRCP-IMPRESSION: Cholecystectomy with mild biliary ductal dilatation that is presumably related to the postcholecystectomy state. No evidence of choledocholithiasis or obstructing mass. Peripancreatic and retroperitoneal fluid consistent with acute pancreatitis. - Physical Exam General: Alert, In no apparent distress, Oriented x3, still on nasal cannula O2 2 L Respiratory: Diminished, Crackles/rales Cardiovascular: Regular rate/rhythm, Normal S1 S2, Systolic murmur Gastrointestinal: Normal bowel sounds, Soft and benign, No tenderness Musculoskeletal: No clubbing, No swelling, No tenderness Impression Acute pancreatitis with retroperitoneal edema Chronic alcohol abuse Hyperlipidemiaon Vascepa Plan -Continue n.p.o. status Continue gentle IV hydration Elevated blood pressure noted, start IV hydralazine as needed Continue adequate pain regimen Continue as needed Zofran MRCP as well as CT abdomen with similar findings, no biliary stone noted Follow GI evaluation LFTs slowly trending down Lipase level improving to 15 K, continue to monitor Continue IV Ativan as needed for alcohol withdrawal symptoms Subcutaneous Lovenox for DVT prophylaxis GI prophylaxis with IV Pepcid Advance directivefull code 11/26/21 11:09
[2021-11-26] MEDS: LORazepam 2 MG/ML VIAL IV PRN (23:34)
[2021-11-27] MEDS: D5LR 1,000 ML IV SCH ×4 (02:05→20:57)
[2021-11-27] MEDS: MORPHINE 2 MG/ML SYR IV PRN (02:05)
[2021-11-27 04:36] LABS: Albumin 3.2 g/dL (3.4-5.0); Bilirubin Total 4.8 mg/dL (0.2-1.0); Magnesium 2.2 mg/dL (1.8-2.4); Protein, Total 6.7 g/dL (6.4-8.2)
[2021-11-27] MEDS: ENOXAPARIN 40 MG/0.4 ML SQ SCH (09:31)
[2021-11-27] MEDS: FAMOTIDINE 20 MG/2 ML VIAL IV SCH ×2 (09:31→20:56)
[2021-11-27] MEDS: LORazepam 2 MG/ML VIAL IV PRN ×3 (09:31→20:57)
--- NOTE | 2021-11-27 13:08 | P.PN ---
Subjective Date of Service: 11/27/21 Chief Complaint: Abdominal pain Subjective: No new changes, No C/O voiced Physical Examination - Vital Signs Temperature: 97.1 F Blood Pressure: 157/82 Pulse: 110 Respirations: 20 Pulse Ox (%): 95 Assessment And Plan Physician Review: Patient Assessed, Agree with Above Assessment and Plan Physician Review Additional Text: CTAbdomen Pelvis W Contrast - 11/25/2021 3:04 pm CLINICAL HISTORY: Abdominal pain, acute, nonlocalized COMPARISON: Abdomen Pelvis W Contrast dated 11/23/2021 TECHNIQUE: CT of the abdomen and pelvis was performed. All CT scans are performed using dose optimization technique as appropriate and may include automated exposure control or mA/KV adjustment according to patient size. FINDINGS: Lower chest: Small hiatal hernia Liver: Hepatic steatosis Biliary: Cholecystectomy the extrahepatic common bile duct measures 9 millimeters. Stomach: No significant focal abnormality. Duodenum: No significant focal abnormality. Pancreas: Diffuse peripancreatic edema. The pancreas enhances homogeneously. Spleen: No significant abnormality. Adrenal: No suspicious lesions. Kidney/ureter: No hydronephrosis. No renal calculi. Too small to characterize and/or benign appearing renal lesions are noted. Retroperitoneum: Fluid extends in the retroperitoneum but no discrete or loculated fluid collections. Vascular: No aneurysm. Bowel: No significant focal abnormality. Peritoneum: No ascites or free air. Small fat containing inguinal hernias. Bladder: Grossly unremarkable. Reproductive: Mild prostatomegaly. Bones: No acute fracture. Other: n/a IMPRESSION: Acute pancreatitis without complicating features identified. Extrahepatic biliary ductal dilatation is nonspecific but may be related to the postcholecystectomy state. MRCP could better evaluate. MRCP-IMPRESSION: Cholecystectomy with mild biliary ductal dilatation that is presumably related to the postcholecystectomy state. No evidence of choledocholithiasis or obstructing mass. Peripancreatic and retroperitoneal fluid consistent with acute pancreatitis. Physical Exam General: Alert, In no apparent distress, Oriented x3, still on nasal cannula O2 2 L Respiratory: CTA b/l, Cardiovascular: Regular rate/rhythm, Normal S1 S2, Systolic murmur Gastrointestinal: Normal bowel sounds, Soft and benign, No tenderness Musculoskeletal: No clubbing, No swelling, No tenderness Impression Acute pancreatitis-with retroperitoneal edema Chronic alcohol abuse with impending withdrawal Hyperlipidemiaon Vascepa Plan Continue n.p.o. status lipase trending down to 6k will start trial of clear liquid c/w IV hydralazine as needed Continue adequate pain regimen Continue as needed Zofran MRCP as well as CT abdomen with similar findings, no biliary stone noted Follow GI evaluation for high Biliruibin LFTs slowly trending down Continue IV Ativan as needed for alcohol withdrawal symptoms Subcutaneous Lovenox for DVT prophylaxis GI prophylaxis with IV Pepcid Advance directivefull code 11/27/21 13:01 Time Spent Managing PTS Care (In Minutes): 35
--- NOTE | 2021-11-27 20:15 | CON ---
Date of Consultation: 11/27/2021 Reason For Consultation: Alcoholic pancreatitis and alcoholic hepatitis. History Of Present Illness: This is a 66-year-old white male with history of hyperlipidemia, gastroe sophageal reflux disease, laparoscopic cholecystectomy, and alcohol abuse. The patient presented to the hospital with acute abdominal pain. The patient is suffering social anguish due to loss of and both parents over the past year. He lives alone and has no children and no social support. He h as turned to bourbon and water and occasional beer for solace. It seems that this has landed him in the hospital with acute initially upper abdominal pain, midepigastric, right upper quadrant area, ext ending to the left upper quadrant, but now he says generalized when I asked is it generalized pain, a ssociated with nausea, but no emesis. No fevers, chills, or night sweats. CT scan shows diffuse fran ma, inflammation of the pancreas. The patient also had elevated liver chemistries including a total bilirubin up to 10 and AST in the 600 range. Past Medical History: Significant for gastroesophageal reflux disease, alcohol abuse, depression sit uational due to loss of in the past, hyperlipidemia, and laparoscopic cholecystectomy. Also in the emergency room, the patient had an MRCP with a history of a CT scan revealed a dilated co mmon bile duct. He is status post laparoscopic cholecystectomy. MRCP was negative. Medications At Home: Include aspirin, folic acid, multivitamin, omega-3 fatty acids, vitamin D3, Pep dona, melatonin. Allergies: NSAID. Social History: He is a . No children. No tobacco or alcohol. [place] and water mainly and s ome beer . He reports father of bone marrow disorder, mother of polycythemia oxana a. Review of Systems: The patient had midepigastric right upper quadrant and left upper quadrant pain, extending to general ized abdominal pain with nausea. No emesis. No fevers, chills, night sweats, melena, or hematochezi a. No hematemesis, coffee-ground emesis, hematuria, dysuria, polyuria, polydipsia, chest pain, short ness of breath, seizure, syncope, lower extremity edema, muscle aches, joint aches, and backaches. Physical Examination: Vital Signs: The patient is 5 feet 11 inches, 237 pounds, BMI 33 kg/m2. He had a temperature 97.6 d egrees Fahrenheit, pulse 110, respirations 20, blood pressure 157/82, O2 saturation 98% to 95%. HEENT: Normocephalic, atraumatic. Anicteric. Pupils equal, round, and reactive to light. Extraocu lar movements are intact. Oropharynx is clear. Neck: Supple. No masses. Respirations: Clear to auscultation bilaterally. Cardiac: Regular rate and rhythm. Gastrointestinal: Abdomen is soft. Positive bowel sounds. Some mild tenderness, but the patient is in the hospital for a couple days now. No peritoneal or [place] sign. Mild guarding. Obese. Extremities: No clubbing, cyanosis, or edema. 2+ pulses. NEURO: Alert and oriented x3. Grossly nonfocal. 5/5 motor. Sensation intact to light touch. Laboratory Data: He had a sodium 137, potassium 4.0, chloride 108, bicarb 27, BUN 23, creatinine of 1.06, glucose 132, calcium 7.6, magnesium 2.2. Total bili 4.8 down from 10.0 yesterday, AST of 132 d own from 360 yesterday, ALT of 630 down from 998 yesterday, alk phos of 220 down from 292 yesterday, total protein 6.7, albumin 3.2, globulin 3.5. Triglycerides 121, cholesterol 194, LDL 141, HDL 29. Lipase is 6728 down from greater than 30,000 on admission. Procalcitonin is elevated at 0.13. TSH i s normal at 0.916. Troponin I is . B-type natriuretic peptide is normal at 44. COVID-[address] scan revealed diffuse edema and inflammation in the pancreas. MRCP was neg ative for biliary stones. CT also showed mild extrahepatic biliary ductal dilatation, possibly secon yonathan to post cholecystectomy state. Ultrasound revealed cholecystectomy changes with mild biliary du ct dilatation within limits of post cholecystectomy changes. Also on MRCP, there was peripancreatic and retroperitoneal fluid consistent with acute pancreatitis. Impression: 1.Alcoholic pancreatitis. CT revealed pancreatitis. MRCP revealed pancreatitis. Generalized upper abdominal, midepigastric, right upper quadrant pain initially, then it is generalized. Lipase grea ter than 30,000 on admission, now down to 6728. The patient has increased alcohol use after of and both parents, lives alone, no children. He also has some nausea, but no emesis, fevers, ch ills, night sweats, or other problems. 2.The patient has alcoholic hepatitis, bilirubin up to 10, AST in the 300-400 range, ALT in the 900- 1000 range, and alk phos in the 200-300 range. This is improving since hospital stay. Continue to m onitor . His discriminant function is only about 10 to 15, not indicative of need for ster oids. 3.Mildly dilated common bile duct, status post laparoscopic cholecystectomy changes. No findings on MRCP except for pancreatitis. 4.History of gastroesophageal reflux disease, hyperlipidemia, alcohol abuse, and laparoscopic cholec ystectomy. Recommendations: 1.Increase IV fluids from 100 to 150. 2.Allow the patient to have ice chips and sips of water. 3.Consider Mucomyst if needed. 4.On discharge, consider alcoholics [facility] and drug rehab. The patient will need support and pos sibly psychological and psychiatry evaluation and therapy for situational depression due to the of and parents. HANSA/MODL Voice ID: [id number] Report ID: [id number]
[2021-11-27] MEDS ORDERED: NA CHLORIDE 0.9% 500 ML IV ONE (23:11)
[2021-11-28] MEDS: D5LR 1,000 ML IV SCH ×3 (03:15→13:01)
[2021-11-28 04:55] LABS: Albumin 2.8 g/dL (3.4-5.0); Bilirubin Total 4.6 mg/dL (0.2-1.0); Protein, Total 6.2 g/dL (6.4-8.2)
[2021-11-28] MEDS: LORazepam 2 MG/ML VIAL IV PRN (10:08)
[2021-11-28] MEDS: FAMOTIDINE 20 MG/2 ML VIAL IV SCH ×2 (10:08→20:12)
[2021-11-28] MEDS: ENOXAPARIN 40 MG/0.4 ML SQ SCH (10:08)
[2021-11-28] MEDS ORDERED: WATER FOR INJ,STERILE 10 ML IM PRN (12:37)
[2021-11-28] MEDS ORDERED: ZIPRASIDONE MESYLA 20 MG/VIAL IM ONE (12:37)
--- NOTE | 2021-11-28 12:37 | P.PN ---
Subjective Date of Service: 11/28/21 Chief Complaint: Abdominal pain Subjective: New changes (More confused this morning, intermittently drowsy) Physical Examination - Vital Signs Temperature: 97.7 F Blood Pressure: 160/76 Pulse: 94 Respirations: 20 Pulse Ox (%): 94 Assessment And Plan Physician Review: Patient Assessed, Agree with Above Assessment and Plan Physician Review Additional Text: CTAbdomen Pelvis W Contrast - 11/25/2021 3:04 pm CLINICAL HISTORY: Abdominal pain, acute, nonlocalized COMPARISON: Abdomen Pelvis W Contrast dated 11/23/2021 TECHNIQUE: CT of the abdomen and pelvis was performed. All CT scans are performed using dose optimization technique as appropriate and may include automated exposure control or mA/KV adjustment according to patient size. FINDINGS: Lower chest: Small hiatal hernia Liver: Hepatic steatosis Biliary: Cholecystectomy the extrahepatic common bile duct measures 9 millimeters. Stomach: No significant focal abnormality. Duodenum: No significant focal abnormality. Pancreas: Diffuse peripancreatic edema. The pancreas enhances homogeneously. Spleen: No significant abnormality. Adrenal: No suspicious lesions. Kidney/ureter: No hydronephrosis. No renal calculi. Too small to characterize and/or benign appearing renal lesions are noted. Retroperitoneum: Fluid extends in the retroperitoneum but no discrete or loculated fluid collections. Vascular: No aneurysm. Bowel: No significant focal abnormality. Peritoneum: No ascites or free air. Small fat containing inguinal hernias. Bladder: Grossly unremarkable. Reproductive: Mild prostatomegaly. Bones: No acute fracture. Other: n/a IMPRESSION: Acute pancreatitis without complicating features identified. Extrahepatic biliary ductal dilatation is nonspecific but may be related to the postcholecystectomy state. MRCP could better evaluate. MRCP-IMPRESSION: Cholecystectomy with mild biliary ductal dilatation that is presumably related to the postcholecystectomy state. No evidence of choledocholithiasis or obstructing mass. Peripancreatic and retroperitoneal fluid consistent with acute pancreatitis. Physical Exam General: Alert, In no apparent distress, Oriented x3, on room air Respiratory: CTA b/l, Cardiovascular: Regular rate/rhythm, Normal S1 S2, Systolic murmur Gastrointestinal: Normal bowel sounds, Soft and benign, No tenderness Musculoskeletal: No clubbing, No swelling, No tenderness Neuroconfused drowsy, incoherent Impression Acute pancreatitis- severe with retroperitoneal edema Chronic alcohol abuse Alcohol withdrawal with delirium tremens Hyperlipidemiaon Vascepa Plan Serum lipase level trending down to 1600 Improving abdominal pain We start patient on clear liquid diet today Continue lipase trend Given new onset delirium tremens, continue Ativan, start Geodon as well as Librium scheduled doses Continue IV hydralazine as needed LFTs with elevated total bilirubin trending down Appreciate GI consultalcohol cessation advised Subcutaneous Lovenox for DVT prophylaxis GI prophylaxis with IV Pepcid Advance directivefull code 11/28/21 12:35 Time Spent Managing PTS Care (In Minutes): 35
--- NOTE | 2021-11-28 12:41 | P.PN ---
Subjective Date of Service: 11/28/21 Chief Complaint: Alcoholic pancretitis, alcoholic hepatitis, jaundice, cholestasis, gen abd Subjective: Improving (No abdominal pain. Decreasing liver #s with Tbili 4.6. Tolerating clear liquid diet. Somewhat confused.) Review of Systems 10-point ROS is otherwise unremarkable Neurological: Confusion Physical Examination - Vital Signs Temperature: 97.7 F Blood Pressure: 160/76 Pulse: 94 Respirations: 20 Pulse Ox (%): 94 - Physical Exam General: Alert, Oriented x2, Disheveled HEENT: Atraumatic, Normocephalic, PERRLA, EOMI, Scleral icterus Neck: Supple Respiratory: Normal air movement Cardiovascular: Normal pulses Gastrointestinal: Soft and benign (obese), No tenderness, No rebound, No guarding Neurological: Normal speech Assessment And Plan - Plan REC: 1) Decrease IVFs to 100 cc/hour 2) CL diet 3) monitor labs 4) Thiamine and Folate 5) DT precautioins 6) BDZ prn Physician Review: Patient Assessed, Agree with Above Assessment and Plan
--- NOTE | 2021-11-28 12:53 | RAD REPORT ---
EXAM DESCRIPTION: RAD - Chest Single View - 11/28/2021 12:55 am CLINICAL HISTORY: 66 years, Male, dyspnea, 02 requirement COMPARISON: None FINDINGS: Single view of the chest was obtained portable. No prior films are available for compariso n. The lung volume is decreased. The cardiomediastinal silhouette demonstrate to be unremarkable. T he heart is not enlarged. The thoracic aorta demonstrated minimal intimal calcification. Costophrenic angles are sharp. No areas of consolidation or masses are seen. The rest of the soft tissue and bony structures demonstrate to be unremarkable. IMPRESSION: Low lung volume. No focal areas of consolidation or masses are seen. Electronically signed by: Jason Galvan MD 11/28/2021 1:03 AM CDT Due to temporary technical issues with the PACS/Fluency reporting system, reports are being signed by the in house radiologist without review as a courtesy to ensure prompt reporting. The interpreting r adiologist is fully responsible for the content of the report.
[2021-11-28] MEDS: chlordiazePOXIDE HCl 5 MG CAP PO SCH ×2 (13:00→18:18)
[2021-11-29] MEDS: chlordiazePOXIDE HCl 5 MG CAP PO SCH ×4 (00:15→18:22)
[2021-11-29 05:41] LABS: Protime INR 1.18
[2021-11-29 06:04] LABS: ALT/SGPT 229 U/L (12-78); Albumin 2.6 g/dL (3.4-5.0); Alkaline Phosphatase 112 U/L (45-117); BUN Blood Urea Nitrogen 16 mg/dL (7-18); Bicarbonate 28 mmol/L (21-32); Bilirubin Total 3.7 mg/dL (0.2-1.0); Glucose Level 111 mg/dL (74-106); Lipase 237 U/L (73-393); Protein, Total 5.9 g/dL (6.4-8.2); Sodium Level 143 mmol/L (136-145)
[2021-11-29 06:09] LABS: AST/SGOT 45 U/L (15-37); Potassium 3.7 mmol/L (3.5-5.1)
[2021-11-29] MEDS: FAMOTIDINE 20 MG/2 ML VIAL IV SCH ×2 (09:47→20:15)
[2021-11-29] MEDS: ENOXAPARIN 40 MG/0.4 ML SQ SCH (09:48)
[2021-11-29] MEDS: D5LR 1,000 ML IV SCH (09:50)
[2021-11-29] MEDS: HYDRALAZINE HCL 20 MG/ML VIAL IV PRN (12:48)
[2021-11-29] MEDS: MORPHINE 2 MG/ML SYR IV PRN (12:49)
--- NOTE | 2021-11-29 14:27 | P.PN ---
Subjective Date of Service: 11/29/21 Chief Complaint: Alcoholic pancretitis, alcoholic hepatitis, jaundice, cholestasis, gen abd Subjective: No new changes, No C/O voiced (Less agitated today Nursing reports sleeping well Tolerating p.o. well) Physical Examination - Vital Signs Temperature: 98.4 F Blood Pressure: 173/89 Pulse: 95 Respirations: 18 Pulse Ox (%): 95 Assessment And Plan Discharge Plan: Home Physician Review: Patient Assessed, Agree with Above Assessment and Plan Physician Review Additional Text: CTAbdomen Pelvis W Contrast - 11/25/2021 3:04 pm CLINICAL HISTORY: Abdominal pain, acute, nonlocalized COMPARISON: Abdomen Pelvis W Contrast dated 11/23/2021 TECHNIQUE: CT of the abdomen and pelvis was performed. All CT scans are performed using dose optimization technique as appropriate and may include automated exposure control or mA/KV adjustment according to patient size. FINDINGS: Lower chest: Small hiatal hernia Liver: Hepatic steatosis Biliary: Cholecystectomy the extrahepatic common bile duct measures 9 millimeters. Stomach: No significant focal abnormality. Duodenum: No significant focal abnormality. Pancreas: Diffuse peripancreatic edema. The pancreas enhances homogeneously. Spleen: No significant abnormality. Adrenal: No suspicious lesions. Kidney/ureter: No hydronephrosis. No renal calculi. Too small to characterize and/or benign appearing renal lesions are noted. Retroperitoneum: Fluid extends in the retroperitoneum but no discrete or loculated fluid collections. Vascular: No aneurysm. Bowel: No significant focal abnormality. Peritoneum: No ascites or free air. Small fat containing inguinal hernias. Bladder: Grossly unremarkable. Reproductive: Mild prostatomegaly. Bones: No acute fracture. Other: n/a IMPRESSION: Acute pancreatitis without complicating features identified. Extrahepatic biliary ductal dilatation is nonspecific but may be related to the postcholecystectomy state. MRCP could better evaluate. MRCP-IMPRESSION: Cholecystectomy with mild biliary ductal dilatation that is presumably related to the postcholecystectomy state. No evidence of choledocholithiasis or obstructing mass. Peripancreatic and retroperitoneal fluid consistent with acute pancreatitis. Physical Exam General: Alert, In no apparent distress, Oriented x3, on room air Respiratory: CTA b/l, Cardiovascular: Regular rate/rhythm, Normal S1 S2, Systolic murmur Gastrointestinal: Normal bowel sounds, Soft and benign, No tenderness Musculoskeletal: No clubbing, No swelling, No tenderness Neuroawake , coherent Impression Acute pancreatitis- severe with retroperitoneal edema Chronic alcohol abuse Alcohol withdrawal with delirium tremens Hyperlipidemiaon Vascepa Plan serum lipase and T bili trending down LFTs significantly improving Delirium tremens improving Continue clear liquid and advance as tolerated Elevated blood pressure, may be due to DTs, start low-dose beta-starla IV hydralazine as needed Continue Librium/as needed Ativan Given history of depression, consider psych eval Appreciate GI consultalcohol cessation advised Subcutaneous Lovenox for DVT prophylaxis GI prophylaxis with IV Pepcid Advance directivefull code 11/29/21 14:25
[2021-11-29] MEDS: METOPROLOL TAR 25 MG TAB PO SCH ×2 (15:50→17:48)
[2021-11-29] MEDS: MELATONIN 5 MG TABLET PO PRN (22:01)
[2021-11-30] MEDS: chlordiazePOXIDE HCl 5 MG CAP PO SCH ×5 (00:56→23:31)
[2021-11-30] MEDS: HYDRALAZINE HCL 20 MG/ML VIAL IV PRN (01:09)
--- NOTE | 2021-11-30 02:01 | CON ---
Date of Consultation: 11/27/2021 Reason For Consultation: Alcoholic pancreatitis and alcoholic hepatitis. History Of Present Illness: This is a 66-year-old white male with history of hyperlipidemia, gastroe sophageal reflux disease, laparoscopic cholecystectomy, and alcohol abuse. The patient presented to the hospital with acute abdominal pain. The patient is suffering social anguish due to loss of and both parents over the past year. He lives alone and has no children and no social support. He h as turned to bourbon and water and occasional beer for solace. It seems that this has landed him in the hospital with acute initially upper abdominal pain, midepigastric, right upper quadrant area, ext ending to the left upper quadrant, but now he says generalized when I asked is it generalized pain, a ssociated with nausea, but no emesis. No fevers, chills, or night sweats. CT scan shows diffuse fran ma, inflammation of the pancreas. The patient also had elevated liver chemistries including a total bilirubin up to 10 and AST in the roughly 200 to 600 range. Past Medical History: Significant for gastroesophageal reflux disease, alcohol abuse, depression sit uational due to loss of in the past, hyperlipidemia, and laparoscopic cholecystectomy. Also in the emergency room, the patient had an MRCP with a history of a CT scan revealed a dilated co mmon bile duct. He is status post laparoscopic cholecystectomy. MRCP was negative. Medications At Home: Include aspirin, folic acid, multivitamin, omega-3 fatty acids, vitamin D3, Pep dona, melatonin. Allergies: NSAID. Social History: He is a . No children. No tobacco or alcohol. [place] and water mainly, some beer after cutting the grass. He reports father of bone marrow disorder, mother of polycy themia vera. Review of Systems: The patient had midepigastric right upper quadrant and left upper quadrant pain, extending to general ized abdominal pain with nausea. No emesis. No fevers, chills, night sweats, melena, or hematochezi a. No hematemesis, coffee-ground emesis, hematuria, dysuria, polyuria, polydipsia, chest pain, short ness of breath, seizure, syncope, lower extremity edema, muscle aches, joint aches, and backaches. Physical Examination: Vital Signs: The patient is 5 feet 11 inches, 237 pounds, BMI 33 kg/m2. He had a temperature 97.6 d egrees Fahrenheit, pulse 110, respirations 20, blood pressure 157/82, O2 saturation 98% to 95%. HEENT: Normocephalic, atraumatic. Anicteric. Pupils equal, round, and reactive to light. Extraocu lar movements are intact. Oropharynx is clear. Neck: Supple. No masses. Respirations: Clear to auscultation bilaterally. Cardiac: Regular rate and rhythm. Gastrointestinal: Abdomen is soft. Positive bowel sounds. Some mild tenderness, but the patient is in the hospital for a couple days now. No peritoneal or [place] sign. Mild guarding. Obese. Extremities: No clubbing, cyanosis, or edema. 2+ pulses. NEURO: Alert and oriented x3. Grossly nonfocal. 5/5 motor. Sensation intact to light touch. Laboratory Data: He had a sodium 137, potassium 4.0, chloride 108, bicarb 27, BUN 23, creatinine of 1.06, glucose 132, calcium 7.6, magnesium 2.2. Total bili 4.8 down from 10.0 yesterday, AST of 132 d own from 360 yesterday, ALT of 630 down from 998 yesterday, alk phos of 220 down from 292 yesterday, total protein 6.7, albumin 3.2, globulin 3.5. Triglycerides 121, cholesterol 194, LDL 141, HDL 29. Lipase is 6728 down from greater than on admission. Procalcitonin is elevated at 0.13. T SH is normal at 0.916. Troponin I is 3.5, high sensitivity. B-type natriuretic peptide is normal at 44. COVID-[address] scan revealed diffuse edema and inflammation in the pancreas . MRCP was negative for biliary stones. CT also showed mild extrahepatic biliary ductal dilatation, possibly secondary to post cholecystectomy state. Ultrasound revealed cholecystectomy changes with mild biliary duct dilatation within limits of post cholecystectomy changes. Also on MRCP, there was peripancreatic and retroperitoneal fluid consistent with acute pancreatitis. Impression: 1.Alcoholic pancreatitis. CT revealed pancreatitis. MRCP revealed pancreatitis. Generalized upper abdominal, midepigastric, right upper quadrant pain initially, then it is generalized. Lipase is gr eater than on admission, now down to 6728. The patient has increased alcohol use after de ath of and both parents, lives alone, no children. He also has some nausea, but no emesis, feve rs, chills, night sweats, or other problems. 2.The patient has alcoholic hepatitis, bilirubin up to 10, AST in the 300-400 range, ALT in the 900- 1000 range, and alk phos in the 200-300 range. This is improving since hospital stay. Continue to m onitor. Maddrey discriminant function is only about 10 to 15, not indicative of need for steroids. 3.Mildly dilated common bile duct, status post laparoscopic cholecystectomy changes. No findings on MRCP except for pancreatitis. 4.History of gastroesophageal reflux disease, hyperlipidemia, alcohol abuse, and laparoscopic cholec ystectomy. Recommendations: 1.Increase IV fluids from 100 to 150. 2.Allow the patient to have ice chips and sips of water. 3.Consider Mucomyst if needed. 4.On discharge, consider alcoholics [facility] and drug rehab. The patient will need support and pos sibly psychological and psychiatry evaluation and therapy for situational depression due to the of and parents. HANSA/DUNIA Voice ID: [id number] Report ID: [id number]
[2021-11-30] MEDS: D5LR 1,000 ML IV SCH (05:36)
[2021-11-30] MEDS: METOPROLOL TAR 25 MG TAB PO SCH ×2 (05:37→17:33)
[2021-11-30 05:57] LABS: ALT/SGPT 163 U/L (12-78); Albumin 2.3 g/dL (3.4-5.0); Alkaline Phosphatase 106 U/L (45-117); BUN Blood Urea Nitrogen 14 mg/dL (7-18); Bicarbonate 26 mmol/L (21-32); Bilirubin Total 2.5 mg/dL (0.2-1.0); Glucose Level 111 mg/dL (74-106); Lipase 142 U/L (73-393); Protein, Total 5.7 g/dL (6.4-8.2); Sodium Level 140 mmol/L (136-145)
[2021-11-30 06:00] LABS: AST/SGOT 31 U/L (15-37); Potassium 3.6 mmol/L (3.5-5.1)
[2021-11-30] MEDS: FAMOTIDINE 20 MG/2 ML VIAL IV SCH ×2 (09:02→21:19)
[2021-11-30] MEDS: ENOXAPARIN 40 MG/0.4 ML SQ SCH (09:02)
[2021-11-30] MEDS ORDERED: FUROSEMIDE 40 MG/4 ML VIAL IV ONE (10:40)
--- NOTE | 2021-11-30 10:45 | P.PN ---
Subjective Date of Service: 11/30/21 Chief Complaint: Alcoholic pancretitis, alcoholic hepatitis, jaundice, cholestasis, gen abd Subjective: No new changes, No C/O voiced (Mild shortness of breath overnight More awake and conversant Has no recollection of the last few days) Physical Examination - Vital Signs Temperature: 98.3 F Blood Pressure: 134/71 Pulse: 84 Respirations: 18 Pulse Ox (%): 95 Assessment And Plan Physician Review: Patient Assessed, Agree with Above Assessment and Plan Physician Review Additional Text: CTAbdomen Pelvis W Contrast - 11/25/2021 3:04 pm CLINICAL HISTORY: Abdominal pain, acute, nonlocalized COMPARISON: Abdomen Pelvis W Contrast dated 11/23/2021 TECHNIQUE: CT of the abdomen and pelvis was performed. All CT scans are performed using dose optimization technique as appropriate and may include automated exposure control or mA/KV adjustment according to patient size. FINDINGS: Lower chest: Small hiatal hernia Liver: Hepatic steatosis Biliary: Cholecystectomy the extrahepatic common bile duct measures 9 millimeters. Stomach: No significant focal abnormality. Duodenum: No significant focal abnormality. Pancreas: Diffuse peripancreatic edema. The pancreas enhances homogeneously. Spleen: No significant abnormality. Adrenal: No suspicious lesions. Kidney/ureter: No hydronephrosis. No renal calculi. Too small to characterize and/or benign appearing renal lesions are noted. Retroperitoneum: Fluid extends in the retroperitoneum but no discrete or loculated fluid collections. Vascular: No aneurysm. Bowel: No significant focal abnormality. Peritoneum: No ascites or free air. Small fat containing inguinal hernias. Bladder: Grossly unremarkable. Reproductive: Mild prostatomegaly. Bones: No acute fracture. Other: n/a IMPRESSION: Acute pancreatitis without complicating features identified. Extr ahepatic biliary ductal dilatation is nonspecific but may be related to the postcholecystectomy state. MRCP could better evaluate. MRCP-IMPRESSION: Cholecystectomy with mild biliary ductal dilatation that is presumably related to the postcholecystectomy state. No evidence of choledocholithiasis or obstructing mass. Peripancreatic and retroperitoneal fluid consistent with acute pancreatitis. Physical Exam General: Alert, In no apparent distress, Oriented x3, on 2 L liters cannula O2 Respiratory: Mild bilateral crepitations, few wheezes Cardiovascular: Regular rate/rhythm, Normal S1 S2, Systolic murmur Gastrointestinal: Normal bowel sounds, Soft and benign, No tenderness Musculoskeletal: No clubbing, No swelling, No tenderness Neuroawake , coherent Impression Acute pancreatitis- severe with retroperitoneal edema Chronic alcohol abuse Alcohol withdrawal with delirium tremensimproving Hyperlipidemiaon Vascepa Mild fluid overload Plan DC IV fluid Start Lasix 40 mg x 1 now Wean O2 as tolerated serum lipase and T bili trending down LFTs significantly improving Delirium tremens improved Improved blood pressure, continue low-dose beta-starla Wean off Librium Given history of depression, consider psych eval Appreciate GI consultalcohol cessation advised Subcutaneous Lovenox for DVT prophylaxis GI prophylaxis with IV Pepcid Advance directivefull code 11/30/21 10:42 Time Spent Managing PTS Care (In Minutes): 30
[2021-11-30 14:51] VITALS: O2SAT 96
[2021-11-30] MEDS: MELATONIN 5 MG TABLET PO PRN (21:19)
[2021-12-01] MEDS: LORazepam 2 MG/ML VIAL IV PRN (02:33)
[2021-12-01 05:02] LABS: Absolute Lymphocytes (CBC) 0.8 K/uL (0.7-4.9); Hematocrit 39.2 % (39.6-49.0); Lymphocytes % 6.1 % (15.3-44.8); MPV 9.4 fL (7.6-11.3); RBC Red Blood Cell Count 3.98 M/uL (4.33-5.43)
[2021-12-01 05:24] LABS: ALT/SGPT 121 U/L (12-78); AST/SGOT 27 U/L (15-37); Albumin 2.3 g/dL (3.4-5.0); Alkaline Phosphatase 107 U/L (45-117); BUN Blood Urea Nitrogen 20 mg/dL (7-18); Bicarbonate 27 mmol/L (21-32); Bilirubin Total 1.9 mg/dL (0.2-1.0); Glucose Level 111 mg/dL (74-106); Potassium 3.2 mmol/L (3.5-5.1); Protein, Total 5.9 g/dL (6.4-8.2); Sodium Level 140 mmol/L (136-145)
[2021-12-01] MEDS: chlordiazePOXIDE HCl 5 MG CAP PO SCH ×2 (06:08→12:27)
[2021-12-01] MEDS: METOPROLOL TAR 25 MG TAB PO SCH (06:08)
[2021-12-01] MEDS: FAMOTIDINE 20 MG/2 ML VIAL IV SCH (08:50)
[2021-12-01] MEDS: ENOXAPARIN 40 MG/0.4 ML SQ SCH (08:50)
[2021-12-01] MEDS ORDERED: POTASSIUM 25 MEQ EFFERV TAB PO ONE (10:09)
--- NOTE | 2021-12-01 13:11 | P.DS ---
Admission Date: 11/25/21 Discharge Date: 12/01/21 Discharge Condition: FAIR Reason for Admission: Alcoholic pancretitis, alcoholic hepatitis, jaundice, cholestasis, gen abd Brief History of Present Illness: 66-year-old male with past medical history of HLD, GERD status postcholecystectomy presented because of 4-day history of recurrent abdominal pain. Pain is mainly liquid seen in the epigastric to right upper quadrant, colicky in pattern, waxes and wanes. Patient said pain typically lasts for a few minutes and then resolved but frequency has been worsening since the last 2 days. He admits to nausea but denies any vomiting. He rates pain as a peak at about 10 out of 10. He presents to the hospital because of worsening symptoms today. He he denies any similar pain in the past. On presentation he had CT of the abdomen and pelvis done with findings of acute pancreatitis as well as mild CBD dilatation at 9 mm likely reflective of postcholecystectomy state. Right upper quadrant abdominal ultrasound shows similar findings. Patient admitted to daily alcohol intake. He states he drinks bourbon every night but he is a bit reluctant to describe the volume that he drinks. He has been admitted for presumed alcoholic induced pancreatitis. Hospital Course: Patient with history of chronic alcohol abuse admitted for generalized abdominal pain. Noted on CT imaging to have pancreatitis as well as marked elevated lipa se level. His LFTs were also markedly elevated with T. bilirubin up to 10. Patient had right upper quadrant ultrasound which shows no evidence of gallstones. CT also shows no evidence of biliary dilatation. He was started on n.p.o., gentle IV fluid. He is bilirubin and LFTs significantly trended down. His lipase slowly improved. Patient developed worsening confusion and was felt to be alcohol withdrawal delirium. He was managed with Ativan and later Librium. His mental status has significantly improved. He was noted with mild elevated blood pressure and started on metoprolol. Patient is alert oriented and conversant now ambulating well. Will be discharged home today. Given his history of depression post grief need for psych evaluation was recommended. He will be discharged to see psychiatrist in outpatient. - Physical Exam General: Alert, In no apparent distress, Oriented x2 HEENT: Atraumatic, PERRLA, Other (mucous membranes dry), EOMI, Sclerae nonicteric Neck: Supple, 2+ carotid pulse no bruit, No LAD, Without JVD or thyroid abnormality Respiratory: Normal air movement, Diminished Cardiovascular: Regular rate/rhythm, Normal S1 S2 Capillary refill: <2 Seconds Gastrointestinal: Normal bowel sounds, No tenderness Musculoskeletal: No tenderness Integumentary: No rashes Neurological: Normal gait, Normal speech, Normal strength at 5/5 x4 extr, Normal tone Lymphatics: No axilla or inguinal lymphadenopathy Assessment: Altered mental status Rule out sepsis/severe sepsis Acute kidney injury Diabetes mellitus type 2insulin-dependent COPD on home oxygen Stage IV colon/stomach cancer chemo Alcoholic cirrhosis of the liver Mild hyponatremia Vital Signs/Physical Exam: Temp Pulse Resp BP Pulse Ox 97.5 F 95 H 20 128/71 98 12/01/21 12:00 12/01/21 12:00 12/01/21 12:00 12/01/21 12:00 12/01/21 12:00 Laboratory Data at Discharge: WBC 12.4 K/uL (4.3-10.9) H D 12/01/21 04:29 Hgb 13.2 g/dL (13.6-17.9) L D 12/01/21 04:29 Hct 39.2 % (39.6-49.0) L D 12/01/21 04:29 Plt Count 135 K/uL (152-406) L 12/01/21 04:29 PT 13.0 SECONDS (9.5-12.5) H 11/29/21 05:22 INR 1.18 11/29/21 05:22 APTT 28.4 SECONDS (24.3-36.9) 11/29/21 05:22 Sodium 140 mmol/L (136-145) 12/01/21 04:29 Potassium 3.2 mmol/L (3.5-5.1) L 12/01/21 04:29 BUN 20 mg/dL (7-18) H 12/01/21 04:29 Creatinine 0.71 mg/dL (0.55-1.3) 12/01/21 04:29 Glucose 111 mg/dL (74-106) H 12/01/21 04:29 Magnesium Cancelled 11/27/21 17:45 Total Bilirubin 1.9 mg/dL (0.2-1.0) H 12/01/21 04:29 AST 27 U/L (15-37) 12/01/21 04:29 ALT 121 U/L (12-78) H 12/01/21 04:29 Alkaline Phosphatase 107 U/L (45-117) 12/01/21 04:29 Triglycerides 121 mg/dL (<150) 11/26/21 03:52 Cholesterol 194 mg/dL (<200) 11/26/21 03:52 HDL Cholesterol 29 mg/dL (40-60) L 11/26/21 03:52 Cholesterol/HDL Ratio 6.69 11/26/21 03:52 Lipase 142 U/L (73-393) 11/30/21 05:20 Home Medications: Aspirin [Aspirin EC 81 MG] 81 mg PO DAILY 12/13/14 Folic Acid 1 mg PO DAILY 12/13/14 Multivitamin [Multivitamins] 1 each PO DAILY 12/13/14 [place]-3 Fatty Acids/Fish Oil [Fish Oil 1,000 mg Softgel] 1,000 mg PO BID 12/13/14 Famotidine [Pepcid*] 20 mg PO DAILY 10/16/20 Melatonin 3 mg PO BEDTIME 10/16/20 Metoprolol Tartrate [Lopressor*] 25 mg PO BID 6AM 6PM #60 tab 12/01/21 New Medications: Metoprolol Tartrate [Lopressor*] 25 mg PO BID 6AM 6PM #60 tab Diet: Low sodium Activity: Ad ashley Followup: Jose Guerin MD [Primary Care Provider] - Keegan Layton [ACTIVE - CAN ADMIT] - 1-2 Weeks Time spent managing pt's care (in minutes): 35
--- NOTE | 2021-12-01 13:56 | P.PN ---
Subjective Date of Service: 12/01/21 Chief Complaint: Alcoholic pancretitis, alcoholic hepatitis, jaundice, cholestasis, gen abd Subjective: No new changes, No C/O voiced, Improving Physical Examination - Vital Signs Temperature: 97.5 F Blood Pressure: 128/71 Pulse: 95 Respirations: 20 Pulse Ox (%): 98 - Studies Microbiology Data (last 24 hrs): 11/25/21 15:39 Blood - Blood Aerobic Blood Culture - Final No growth in 5 days. 11/25/21 15:39 Blood - Blood Anaerobic Blood Culture - Final No growth in 5 days. 11/25/21 15:24 Blood - Blood Aerobic Blood Culture - Final No growth in 5 days. 11/25/21 15:24 Blood - Blood Anaerobic Blood Culture - Final No growth in 5 days. Assessment And Plan Physician Review: Patient Assessed, Agree with Above Assessment and Plan Physician Review Additional Text: CTAbdomen Pelvis W Contrast - 11/25/2021 3:04 pm CLINICAL HISTORY: Abdominal pain, acute, nonlocalized COMPARISON: Abdomen Pelvis W Contrast dated 11/23/2021 TECHNIQUE: CT of the abdomen and pelvis was performed. All CT scans are performed using dose optimization technique as appropriate and may include automated exposure control or mA/KV adjustment according to patient size. FINDINGS: Lower chest: Small hiatal hernia Liver: Hepatic steatosis Biliary: Cholecystectomy the extrahepatic common bile duct measures 9 millimeters. Stomach: No significant focal abnormality. Duodenum: No significant focal abnormality. Pancreas: Diffuse peripancreatic edema. The pancreas enhances homogeneously. Spleen: No significant abnormality. Adrenal: No suspicious lesions. Kidney/ureter: No hydronephrosis. No renal calculi. Too small to characterize and/or benign appearing renal lesions are noted. Retroperitoneum: Fluid extends in the retroperitoneum but no discrete or loculated fluid collections. Vascular: No aneurysm. Bowel: No significant focal abnormality. Peritoneum: No ascites or free air. Small fat containing inguinal hernias. Bladder: Grossly unremarkable. Reproductive: Mild prostatomegaly. Bones: No acute fracture. Other: n/a IMPRESSION: Acute pancreatitis without complicating features identified. Extrahepatic biliary ductal dilatation is nonspecific but may be related to the postcholecystectomy state. MRCP could better evaluate. MRCP-IMPRESSION: Cholecystectomy with mild biliary ductal dilatation that is presumably related to the postcholecystectomy state. No evidence of choledocholithiasis or obstructing mass. Peripancreatic and retroperitoneal fluid consistent with acute pancreatitis. Physical Exam General: Alert, In no apparent distress, Oriented x3, on 2 L liters cannula O2 Respiratory: Mild bilateral crepitations, few wheezes Cardiovascular: Regular rate/rhythm, Normal S1 S2, Systolic murmur Gastrointestinal: Normal bowel sounds, Soft and benign, No tenderness Musculoskeletal: No clubbing, No swelling, No tenderness Neuroawake , coherent Impression Acute pancreatitis- severe with retroperitoneal edema Chronic alcohol abuse Alcohol withdrawal with delirium tremensimproving Hyperlipidemiaon Vascepa Mild fluid overload Plan Weaned off O2 Continue to hold off IVF Continue Lasix serum lipase and T bili trending down LFTs significantly improving Delirium tremens improved Improved blood pressure, continue low-dose beta-starla Wean off Librium Given history of depression, consider psych eval as outpatient Appreciate GI consultalcohol cessation advised Subcutaneous Lovenox for DVT prophylaxis GI prophylaxis with IV Pepcid Advance directivefull code Discharge home today 12/01/21 13:55
[2021-12-01 17:10] VITALS: BP 138/76; TEMP 98.6
== END 2021-12-01 18:23 | disposition home or self-care (01) | DRG 439 ==
LOC: ER 13:32 → ERHOLD 17:41 → 2ND 22:15
PROVIDERS: ADMIT Internal Medicine; ATTEND Internal Medicine
DX: K85.20 Alcohol induced acute pancreatitis without necrosis or infection (principal); N17.9 Acute kidney failure, unspecified; F10.131 Alcohol abuse with withdrawal delirium; E87.1 Hypo-osmolality and hyponatremia; E78.5 Hyperlipidemia, unspecified; E87.70 Fluid overload, unspecified; K21.9 Gastro-esophageal reflux disease without esophagitis; F32.A Depression, unspecified; K70.10 Alcoholic hepatitis without ascites; Z90.49 Acquired absence of other specified parts of digestive tract; K83.8 Other specified diseases of biliary tract; Z79.82 Long term (current) use of aspirin; Z20.822 Contact with and (suspected) exposure to COVID-19
CPT/HCPCS: 36415; 71045; 74177; 74181; 76705; 80048; 80053; 80061; 80076; 82947; 83605; 83690; 83735; 83880; 84132; 84145; 84443; 84484; 85025; 85610; 85730; 87040; 93005; 96361; 96374; 96375; 97161; 99284; 99285; J0360; J1170; J1650; J1940; J2270; J2405; J3486; J3490; J7030; J7040; J7121; Q9967; U0003